=== PATIENT | female | born 1955 | race Caucasian/White ===

== ENCOUNTER 2019-04-08 08:35 | Outpatient (CLI) | payer BC, SELFPAY ==
[2019-04-08 09:01] LABS: Abs Immature Grans 0.01 k/cumm (0.0-0.09); Absolute Basophil Count 0.05 k/cumm (0.0-0.2); Absolute Monocyte Count 0.37 k/cumm (0.11-0.7); Absolute Neutrophil Count 2.33 k/cumm (1.2-6.7); Eosinophils % 3.8; HCT 40.3 % (36.0-46.0); HGB 13.8 g/dL (12.0-15.5); Immature Grans % 0.2; Lymphocytes % 43.7; Mean Corp. HGB Concentration 34.2 g/dL (32.0-36.0); Mean Corpuscular Hemoglobin 30.1 pg (27.0-33.0); Mean Platelet Volume 8.5 fL (8.0-11.0); Neutrophils % 44.3; Platelet Count 300 x1000/uL (130-400); RBC 4.58 m/cumm (4.00-5.20); White Blood Cell Count 5.26 k/cumm (4.4-10.8)
[2019-04-08 09:56] LABS: ALT 26 U/L (14-59); AST 20 U/L (15-37); Albumin 3.7 g/dL (3.4-5.0); Alkaline Phosphatase 81 U/L (46-116); Anion Gap 7.4 mmol/L (3-11); BUN 12 mg/dL (7-18); Bilirubin, Total 0.5 mg/dL (0.2-1.0); CO2 29.6 mmol/L (21.0-32.0); CREATININE 0.89 mg/dL (0.55-1.02); Calcium 9.8 mg/dL (8.5-10.1); Calculated LDL 127 mg/dL; Chloride 104 mmol/L (98-107); Cholesterol 204 mg/dL (50-200); Glucose 84 mg/dL (70-100); HDL Cholesterol 60 mg/dL (40-60); Potassium 4.8 mmol/L (3.5-5.1); Sodium 141 mmol/L (136-145); TSH 2.53 uIU/mL (0.36-3.74); Total Protein 6.8 g/dL (6.4-8.2); Triglyceride 88 mg/dL (30-150)
== END 2019-04-08 08:55 ==
PROVIDERS: PCP Family Medicine; Visit Provider Family Medicine
DX: Z00.00 Encounter for general adult medical examination without abnormal findings (principal); Z13.220 Encounter for screening for lipoid disorders; Z13.0 Encounter for screening for diseases of the blood and blood-forming organs and certain disorders involving the immune mechanism; Z13.228 Encounter for screening for other metabolic disorders
CPT/HCPCS: 36415; 80053; 80061; 84443; 85025

== ENCOUNTER 2019-04-21 15:59 | Outpatient (REF) | payer BC, SELFPAY ==
--- NOTE | 2019-04-21 14:20 | PAPFT_PTH ---
PATIENT: Iris Pearl LOC: [facility] U#:[id number] AGE/SX: 64/F ROOM: RE04/21/[address]: Magaly Nguyen : 1955 BED: DIS: 04/21/2019 SPEC #: [id number] RECD: 04/21/19 18:02 STATUS: TRISTAN REAleksandra #: [id number] RAYMOND: 04/21/19 14:[address]: Magaly Nguyen DEPT: [facility] Cytology RECD BY: Cyndi Chambers ENTERED: 04/21/19 18:02 SP TYPE: PAPFT OTHR DR: Mane Woods Tissues: 1 - CX/ENDOCX FOR PAP SMEARS Procedures: PAP THIN PREP/UVM Screening HPV DNA PROBE Comments: [id number]
== END 2019-04-21 16:19 ==
LOC: LBN 15:59
PROVIDERS: PCP Family Medicine; Visit Provider Obstetrics & Gynecology Gynecology
DX: Z12.4 Encounter for screening for malignant neoplasm of cervix (principal); Z11.51 Encounter for screening for human papillomavirus (HPV)
CPT/HCPCS: 88142; 87624

== ENCOUNTER 2019-11-12 02:10 | Outpatient (CLI) | payer BC, SELFPAY ==
--- NOTE | 2019-11-12 07:30 | DI.MAMMO_ITS ---
EXAM: MG MAMMO SCREENING CLINICAL HISTORY: screening,z12.39 TECHNIQUE: Bilateral full field digital CC and MLO mammographic images were obtained with 3D tomosyn thesis and utilizing computer aided detection (CAD). COMPARISON: Available for comparison. FINDINGS: Masses/Architectural Distortion: None seen. Microcalcifications: No suspicious pleomorphic-type are seen. Skin Thickening/Nipple Retraction: None. IMPRESSION: 1. No significant interval change with no specific features of malignancy noted. 2. Unless there is more urgent need, screening mammography is recommended, as per [employer] guidelines. BI-RADS Category 1 - Negative Breast Density - Category B - Scattered areas of fibroglandular density A negative radiographic report should not delay biopsy if a dominant or clinically suspicious mass is present. Up to ten percent of cancers are not identified on mammography. A negative report may reinforce clinical impression. Adenosis and dense breasts may obscure an underlying neoplasm. False positive reports average 6 to 10%. Patient will receive a letter notifying them of these results.
== END 2019-11-12 02:30 ==
PROVIDERS: PCP Family Medicine; Visit Provider Obstetrics & Gynecology Gynecology
DX: Z12.31 Encounter for screening mammogram for malignant neoplasm of breast (principal)
CPT/HCPCS: 77063; 77067

== ENCOUNTER 2020-02-26 14:02 | Inpatient (IN) | payer BC, SELFPAY ==
[2020-02-26] VITALS (47 sets, daily range): BP systolic 109–165; BP diastolic 56–93; PULSE 64–90; RESP 10–25; TEMP 37–38.3; O2SAT 90–97
--- NOTE | 2020-02-26 14:12 | ED.GENADUL_ITS ---
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 She has nuchal rigidity with positive Brudzinski sign. Temp 100.9 rectal. She appears uncomfortable but nontoxic. Concern for meningitis. Will check screening labs, urinalysis, lactate, COVID-19, blood cultures, CT head and chest x-ray, and give fluids and Tylenol and plan for LP. LP done by anesthesia during high level of volume and acuity in the ED. Labs reviewed and normal white blood cell count, lactate, electrolytes, troponin, urinalysis. CT head and CXR negative for acute disease. 1800 -- CSF notes elevated white blood cell count with no neutrophils or bacteria, high protein and normal glucose. Results appear consistent with viral meningitis. Patient reassessed and she states she feels better. Patient is agreeable with plan for admission for observation overnight, antibiotics for prophylactic coverage while cultures pending and for continued pain control as needed. 1845 -- Case discussed with hospitalist accepts patient for admission. Will order Rocephin, vancomycin, ampicillin and acyclovir. Medical Records Medical records reviewed: Yes I reviewed the patient's medical records. Imaging Data Radiologic Study: Radiologist's impression: CT Head Without Contrast Exam date and time: 02/26/2020 3:07 PM Age: 64 years old Clinical indication: Other: Headache, fever TECHNIQUE: Imaging protocol: Computed tomography of the head without contrast. Radiation optimization: All CT scans at this facility use at least one of these dose optimization techniques: automated exposure control; mA and/or kV adjustment per patient size (includes targeted exams where dose is matched to clinical indication); or iterative reconstruction. COMPARISON: No relevant prior studies available. FINDINGS: Brain: No intracranial hemorrhage or extra-axial fluid collection. No evidence of mass effect or midline shift. Romero-white matter differentiation is intact. Ventricles: No ventriculomegaly. Bones/joints: No acute osseus lesion or fracture. Sinuses: Unremarkable as visualized. Mastoid air cells: Unremarkable. Soft tissues: Unremarkable. IMPRESSION: No acute intracranial pathology. XR Chest, 2 Views Exam date and time: 02/26/2020 4:15 PM Age: 64 years old Clinical indication: Other: Chest pain fever TECHNIQUE: Imaging protocol: XR of the chest Views: 2 views. COMPARISON: No relevant prior studies available. FINDINGS: Lungs: No focal areas of consolidation. Pleural space: No pleural effusion or pneumothorax. Heart/Mediastinum: Cardiac and mediastinal silhouettes are unremarkable. Bones/joints: No acute osseus lesion or fracture. IMPRESSION: No acute cardiopulmonary findings. Lab Data Lab results reviewed: Yes I reviewed the patient's lab results. Labs: 02/26/20 17:05 Cerebrospinal Fluid Body Fluid Culture - Pending 02/26/20 17:05 Cerebrospinal Fluid Gram Stain - Final 02/26/20 15:43 Blood Blood Culture - Pending 02/26/20 14:45 Blood Blood Culture - Pending Laboratory Tests Range/Units 02/26/20 02/26/20 02/26/20 14:30 14:45 14:45 WBC (4.4-10.8) 10^3/uL RBC (3.93-5.22) 10^6/uL Hgb (11.2-15.7) g/dL Hct (36.0-46.0) % MCV (80-95) fL MCH (27.0-33.0) pg MCHC (32.0-36.0) % RDW (11.7-14.6) % Plt Count (130-400) 10^3/uL MPV (8.0-11.0) fL Immature Gran % Neutrophils % Lymphocytes % Monocytes % Eosinophils % Basophils % Nucleated RBC % % Absolute Neutrophils (1.2-6.7) 10^3/uL Absolute Lymphocytes (1.2-3.4) 10^3/uL Absolute Monocytes (0.1-0.8) 10^3/uL Absolute Eosinophils (0.0-0.7) 10^3/uL Absolute Basophils (0.0-0.2) 10^3/uL Xanthochromia PT (9.3-11.0) sec 10.0 INR (0.9-1.1) 1.0 APTT (21.0-31.4) sec 22.3 VBG Lactate (0.6-1.4) mmol/L 1.4 Sodium (136-145) mmol/L Potassium (3.5-5.1) mmol/L Chloride (98-107) mmol/L Carbon Dioxide (21.0-32.0) mmol/L Anion Gap (3-11) mmol/L BUN (7-18) mg/dL Creatinine (0.55-1.02) mg/dL Estimated GFR/1.73 m2 (mL/min/1.73m2) Glucose (74-106) mg/dL Calcium (8.5-10.1) mg/dL Magnesium (1.8-2.4) mg/dL Total Bilirubin (0.2-1.0) mg/dL AST (15-37) U/L ALT (14-59) U/L Alkaline Phosphatase (46-116) U/L Troponin I (<0.06) ng/mL Total Protein (6.4-8.2) g/dL Albumin (3.4-5.0) g/dL Urine Color (Yellow) Yellow Urine Clarity (Clear) Cloudy Urine pH (5-8) 8.0 Ur Specific Lockwood (1.005-1.025) 1.020 Urine Protein (Negative) mg/dL Negative Urine Ketones (Negative) mg/dL Negative Urine Blood (Negative) Small H Urine Nitrite (Negative) Negative Urine Bilirubin (Negative) Negative Urine Urobilinogen (Up TO 0.2) EU/dL 0.2 Ur Leukocyte Esterase (Negative) Negative Urine RBC (0-2) HPF 0-2 Urine WBC (0-5) HPF Negative Ur Epithelial Cells (Negative) HPF Few Urine Crystals (Negative) HPF Many amorphous Urine Bacteria (Negative) HPF Negative Urine Mucus (Negative) Negative Ur Culture Indicated? No Urine Glucose (Negative) mg/dL Negative Fluid Source Fluid Color Fluid Clarity Fluid WBC Fld Polynuclear WBCs % Fluid Mononuclear Cell Fluid Other Cells CSF Tube Number CSF Color CSF Clarity CSF WBC (0-5) /uL CSF RBC (0-5) /mm3 CSF Neutrophils % (0-6) % CSF Lymphocytes % (40-80) % CSF Monos/Macrophage % (15-45) % CSF Diff Comment CSF Glucose (40-70) mg/dL CSF Total Protein (15-45) mg/dL Path Cons Comment Range/Units 02/26/20 02/26/20 02/26/20 14:45 14:45 17:05 WBC (4.4-10.8) 10^3/uL 9.61 RBC (3.93-5.22) 10^6/uL 4.67 Hgb (11.2-15.7) g/dL 14.0 Hct (36.0-46.0) % 40.3 MCV (80-95) fL 86.3 MCH (27.0-33.0) pg 30.0 MCHC (32.0-36.0) % 34.7 RDW (11.7-14.6) % 12.2 Plt Count (130-400) 10^3/uL 310 MPV (8.0-11.0) fL 9.3 Immature Gran % 0.4 Neutrophils % 79.8 Lymphocytes % 14.6 Monocytes % 4.5 Eosinophils % 0.3 Basophils % 0.4 Nucleated RBC % % 0 Absolute Neutrophils (1.2-6.7) 10^3/uL 7.67 H Absolute Lymphocytes (1.2-3.4) 10^3/uL 1.40 Absolute Monocytes (0.1-0.8) 10^3/uL 0.43 Absolute Eosinophils (0.0-0.7) 10^3/uL 0.03 Absolute Basophils (0.0-0.2) 10^3/uL 0.04 Xanthochromia PT (9.3-11.0) sec INR (0.9-1.1) APTT (21.0-31.4) sec VBG Lactate (0.6-1.4) mmol/L Sodium (136-145) mmol/L 137 Potassium (3.5-5.1) mmol/L 3.8 Chloride (98-107) mmol/L 103 Carbon Dioxide (21.0-32.0) mmol/L 25.1 Anion Gap (3-11) mmol/L 8.9 BUN (7-18) mg/dL 13 Creatinine (0.55-1.02) mg/dL 0.91 Estimated GFR/1.73 m2 (mL/min/1.73m2) >= 60.00 Glucose (74-106) mg/dL 99 Calcium (8.5-10.1) mg/dL 9.9 Magnesium (1.8-2.4) mg/dL 2.2 Total Bilirubin (0.2-1.0) mg/dL 0.4 AST (15-37) U/L 17 ALT (14-59) U/L 28 Alkaline Phosphatase (46-116) U/L 82 Troponin I (<0.06) ng/mL < 0.05 Total Protein (6.4-8.2) g/dL 7.4 Albumin (3.4-5.0) g/dL 3.8 Urine Color (Yellow) Urine Clarity (Clear) Urine pH (5-8) Ur Specific Lockwood (1.005-1.025) Urine Protein (Negative) mg/dL Urine Ketones (Negative) mg/dL Urine Blood (Negative) Urine Nitrite (Negative) Urine Bilirubin (Negative) Urine Urobilinogen (Up TO 0.2) EU/dL Ur Leukocyte Esterase (Negative) Urine RBC (0-2) HPF Urine WBC (0-5) HPF Ur Epithelial Cells (Negative) HPF Urine Crystals (Negative) HPF Urine Bacteria (Negative) HPF Urine Mucus (Negative) Ur Culture Indicated? Urine Glucose (Negative) mg/dL Fluid Source Fluid Color Fluid Clarity Fluid WBC Fld Polynuclear WBCs % Fluid Mononuclear Cell Fluid Other Cells CSF Tube Number CSF Color CSF Clarity CSF WBC (0-5) /uL CSF RBC (0-5) /mm3 CSF Neutrophils % (0-6) % CSF Lymphocytes % (40-80) % CSF Monos/Macrophage % (15-45) % CSF Diff Comment CSF Glucose (40-70) mg/dL 49 CSF Total Protein (15-45) mg/dL Path Cons Comment Range/Units 02/26/20 02/26/20 17:05 17:05 WBC (4.4-10.8) 10^3/uL RBC (3.93-5.22) 10^6/uL Hgb (11.2-15.7) g/dL Hct (36.0-46.0) % MCV (80-95) fL MCH (27.0-33.0) pg MCHC (32.0-36.0) % RDW (11.7-14.6) % Plt Count (130-400) 10^3/uL MPV (8.0-11.0) fL Immature Gran % Neutrophils % Lymphocytes % Monocytes % Eosinophils % Basophils % Nucleated RBC % % Absolute Neutrophils (1.2-6.7) 10^3/uL Absolute Lymphocytes (1.2-3.4) 10^3/uL Absolute Monocytes (0.1-0.8) 10^3/uL Absolute Eosinophils (0.0-0.7) 10^3/uL Absolute Basophils (0.0-0.2) 10^3/uL Xanthochromia Absent PT (9.3-11.0) sec INR (0.9-1.1) APTT (21.0-31.4) sec VBG Lactate (0.6-1.4) mmol/L Sodium (136-145) mmol/L Potassium (3.5-5.1) mmol/L Chloride (98-107) mmol/L Carbon Dioxide (21.0-32.0) mmol/L Anion Gap (3-11) mmol/L BUN (7-18) mg/dL Creatinine (0.55-1.02) mg/dL Estimated GFR/1.73 m2 (mL/min/1.73m2) Glucose (74-106) mg/dL Calcium (8.5-10.1) mg/dL Magnesium (1.8-2.4) mg/dL Total Bilirubin (0.2-1.0) mg/dL AST (15-37) U/L ALT (14-59) U/L Alkaline Phosphatase (46-116) U/L Troponin I (<0.06) ng/mL Total Protein (6.4-8.2) g/dL Albumin (3.4-5.0) g/dL Urine Color (Yellow) Urine Clarity (Clear) Urine pH (5-8) Ur Specific Lockwood (1.005-1.025) Urine Protein (Negative) mg/dL Urine Ketones (Negative) mg/dL Urine Blood (Negative) Urine Nitrite (Negative) Urine Bilirubin (Negative) Urine Urobilinogen (Up TO 0.2) EU/dL Ur Leukocyte Esterase (Negative) Urine RBC (0-2) HPF Urine WBC (0-5) HPF Ur Epithelial Cells (Negative) HPF Urine Crystals (Negative) HPF Urine Bacteria (Negative) HPF Urine Mucus (Negative) Ur Culture Indicated? Urine Glucose (Negative) mg/dL Fluid Source Cancelled Fluid Color Cancelled Fluid Clarity Cancelled Fluid WBC Cancelled Fld Polynuclear WBCs % Cancelled Fluid Mononuclear Cell Cancelled Fluid Other Cells Cancelled CSF Tube Number 4 CSF Color Colorless CSF Clarity Clear CSF WBC (0-5) /uL 74 H CSF RBC (0-5) /mm3 3 CSF Neutrophils % (0-6) % 0 CSF Lymphocytes % (40-80) % 65 CSF Monos/Macrophage % (15-45) % 35 CSF Diff Comment Performed CSF Glucose (40-70) mg/dL CSF Total Protein (15-45) mg/dL 98 H Path Cons Comment Cancelled HPI General Mode of arrival: ambulatory . Date/Time Provider Initiated Documentation: 02/26/20 14:03 . Limitations to Documentation: no limitations . Information obtained by: patient . HPI Narrative: Patient is a 64-year-old female with a history of genital herpes and Mollaret's syndrome presents for fever, headache, neck pain, back pain, generalized fatigue over the past 2 days. Patient states she has had 3 previous episodes of viral meningitis, occurring in 1984, , with the last episode occurring in 2002. She states her current symptoms do appear consistent with previous episodes of viral meningitis. 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 She states she maintains 6 feet distance and always wears a mask. She states she traveled to [place] within the last 6 weeks and traveled to [facility] within the last 2 weeks but is not aware of any known exposure to COVID-19. She states her highest temperature she obtained was 99.9. She also admits to an episode of right-sided chest pain yesterday that she felt was tender to touch and worse with movement. She states she needed to push her car out of a ditch yesterday and feels that the pain may be more muscular. She denies any shortness of breath associated with this. She denies any other known sick contacts. Related Data Home Medications Medication Instructions Recorded Confirmed ibuprofen [Advil] 200 mg PO PRN 07/10/16 02/26/20 estradiol 1 vag ring VG [id number] #1 each 04/21/19 02/26/20 Previous Rx's Medication Instructions Recorded estradiol 1 vag ring VG [id number] #1 each 10/29/19 Allergies Allergy/AdvReac Type Severity Reaction Status Date / Time No Known Allergies Allergy Unverified 02/26/20 14:27 Review of Systems All systems reviewed & are unremarkable except as noted in HPI and below Constitutional Constitutional: Reports as per HPI, Denies chills, Reports fatigue, Reports fever(s), Reports headache(s) and Reports poor appetite Eyes Eyes: Denies blurry vision ENT Ears, Nose, Mouth, and Throat: Denies dizziness, Reports headache(s), Reports neck pain, Denies sore throat and Denies throat swelling Cardiovascular Cardiovascular: Denies chest pain and Denies dyspnea Respiratory Respiratory: Denies cough and Denies dyspnea Gastrointestinal Gastrointestinal: Denies abdominal pain, Denies diarrhea and Denies vomiting Genitourinary Genitourinary: Denies hematuria and Denies dysuria Musculoskeletal Musculoskeletal: Reports back pain, Reports neck pain and Denies numbness Integumentary/Breasts Skin/Breast: Denies lesions and Denies rash Neurologic Neurologic: Denies dizziness, Reports headache(s), Denies localized weakness and Denies numbness Endocrine Endocrine: Reports fatigue Allergic/Immunologic Allergic/Immunologic: Denies throat swelling [facility], [facility] Medical History Genital herpes no recent outbreaks. Mollaret's syndrome (benign recurrent meningitis) 1984, 1989, 2002. Serum calcium elevated Dx in 2016. Nl parathyoid gland. only had preliiminary w/u prior to moving to [place]. Will f/u with new PCP at [facility]. 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 Rx with Estring. Family History Mother , suicide at age 60. Stroke Father , alzheimers Neoplasm prostate CA. Sister Alcohol abuse Neoplasm breast CA. Sister No problems noted. Social History (Updated 05/03/19 @ 11:09 by Magaly Nguyen MD) Smoking/Tobacco Use Status: Former Tobacco Use Second Hand Exposure: No Alcohol Intake: current Alcohol Intake frequency: a few times a week Alcohol type: wine Drug use: Never Substance use type: does not use Household members: none and other Details: D-lives alone. 2019 in a relationship with boyfriend. 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 Payton 23yo 2018 moved to [facility]. Female Reproductive History Menstrual Menopause type: natural History History 2 Para 2 Hx # Term Pregnancies 2 Multiple births Hx # Pregnancies Ectopic pregnancies AB induced Hx Number of Living Children 2 AB spontaneous Exam Const General: cooperative and no acute distress Orientation: alert, awake and oriented x3 HENMT Head: normal to inspection Ears: hearing grossly normal bilaterally, external ears normal and TM's normal bilaterally General nose exam: external nose normal Face and sinus: normal facial exam Mouth: oral mucosae normal Teeth and gingiva: dentition normal Throat: posterior oropharynx normal Eyes General: appearance normal, both eyes and all related structures Eyelids: eyelids normal Pupils: PERRL EOM: EOM intact bilaterally Neck Neck: normal visual inspection and positive Brudzinski's sign Lymphatic: no lymphadenopathy noted Chest Chest: normal inspection of the chest Resp Effort & Inspection: normal respiratory effort and able to speak in complete sentences Auscultation: clear to auscultation bilaterally Cardio Rate: regular rate Rhythm: regular rhythm GI Inspection: normal to inspection Palpation: soft, not firm, no guarding, no hepatosplenomegaly, no masses and nontender Auscultation: normal bowel sounds Back/Spine/Pelvis Back: no CVA tenderness Skin General skin exam: no rashes or lesions noted Neuro General: patient alert and patient awake Cognition: normal cognition Speech: speech normal Gait: normal gait Motor: muscle tone normal throughout Sensory Exam: no sensory deficits noted Extrem General: normal to inspection, full ROM and capillary refill normal Psych Appearance: grossly normal Mental Status: mental status grossly normal Speech and Movement: speech and movement normal Affect: normal affect Thought Process: normal
--- NOTE | 2020-02-26 14:41 | NUR.NOTE ---
Nursing Note: Had shingles vaccine 6 months ago, flu vaccine last fall. Did have childhood immunizations.
[2020-02-26] MEDS: Normal Saline 1,000 ML 1000 ML IV ×2 (14:50→18:48)
--- NOTE | 2020-02-26 15:00 | DI.CT_ITS ---
EXAM: CT HEAD WO CLINICAL HISTORY: fever, headache, r/o acute disease. TECHNIQUE: Imaging Protocol: Axial computed tomography images with coronal and sagittal reformatted images were created and reviewed COMPARISON: No exams were available for comparison FINDINGS: Ventricles and Extra axial spaces: Normal in size and morphology for the patient's age. Hemorrhage: None. Cerebral parenchyma: Mild atrophy. No mass or infarct.. Midline shift: None. Brainstem/Cerebellum: Normal. Calvarium: Normal. Visualized Paranasal sinuses/Mastoids: Clear. Soft Tissues: Unremarkable. IMPRESSION: No acute intracranial process. RADIATION DOSE DELIVERED: Total DLP DATA REPOSITORY: All CT scans at this facility are submitted to the National Radiology Data Registry (NRDR) Dose Index Registry (DIR) with the [employer] (A[employer]). RADIATION OPTIMIZATION: All CT scans at this facility use at least one of these dose optimization te chniques: automated exposure control; mA and/or kV adjustment per patient size (includes targeted exa ms where dose is matched to clinical indication); or iterative reconstruction.
--- NOTE | 2020-02-26 15:00 | DI.RAD_ITS ---
EXAM: XR CHEST 2V PA LATERAL CLINICAL HISTORY: chest pain, fever, r/o acute disease TECHNIQUE: 2D digital imaging was performed. COMPARISON: No exams were available for comparison FINDINGS: MEDIASTINUM: Normal. HEART: Normal. PULMONARY VASCULATURE: Normal. LUNGS: Clear. PLEURAL SPACE: No pleural effusion or pneumothorax. BONE:Normal. OTHER FINDINGS:Normal. IMPRESSION: No acute pulmonary findings. DATA REPOSITORY: RADIATION DOSE DELIVERED:
[2020-02-26 15:12] LABS: Lactate 1.4 mmol/L (0.6-1.4)
[2020-02-26 15:14] LABS: Abs Immature Grans 0.04 10^3/uL (0.0-0.06); Absolute Basophil Count 0.04 10^3/uL (0.0-0.2); Absolute Eosinophil Count 0.03 10^3/uL (0.0-0.7); Absolute Monocyte Count 0.43 10^3/uL (0.1-0.8); Absolute Neutrophil Count 7.67 10^3/uL (1.2-6.7); Basophils % 0.4; Eosinophils % 0.3; HCT 40.3 % (36.0-46.0); Immature Grans % 0.4; Lymphocytes % 14.6; MCHC 34.7 % (32.0-36.0); MCV 86.3 fL (80-95); MPV 9.3 fL (8.0-11.0); Monocytes % 4.5; Neutrophils % 79.8; Nucleated RBC 0 %; Platelet Count 310 10^3/uL (130-400); RBC 4.67 10^6/uL (3.93-5.22); RDW 12.2 % (11.7-14.6); RDW-SD 38.2 fL; WBC 9.61 10^3/uL (4.4-10.8)
[2020-02-26 15:31] LABS: PTT Activated 22.3 sec (21.0-31.4)
[2020-02-26 15:32] LABS: ALT 28 U/L (14-59); AST 17 U/L (15-37); Albumin 3.8 g/dL (3.4-5.0); Alkaline Phosphatase 82 U/L (46-116); Anion Gap 8.9 mmol/L (3-11); BUN 13 mg/dL (7-18); Bilirubin, Total 0.4 mg/dL (0.2-1.0); CO2 25.1 mmol/L (21.0-32.0); CREATININE 0.91 mg/dL (0.55-1.02); Calcium 9.9 mg/dL (8.5-10.1); Chloride 103 mmol/L (98-107); Glucose 99 mg/dL (74-106); Magnesium 2.2 mg/dL (1.8-2.4); Potassium 3.8 mmol/L (3.5-5.1); Sodium 137 mmol/L (136-145); Total Protein 7.4 g/dL (6.4-8.2)
[2020-02-26 15:36] LABS: Troponin I < 0.05 ng/mL (<0.06)
[2020-02-26 16:12] LABS: Bilirubin Negative (Negative); Blood Small (Negative); Clarity Cloudy (Clear); Glucose Negative (Negative); Ketones Negative (Negative); Leukocyte Esterase Negative (Negative); Nitrite Negative (Negative); Urobilinogen 0.2 EU/dL (Up TO 0.2)
[2020-02-26 16:23] LABS: Bacteria Negative HPF (Negative); C & S Indicated? No; Crystals Many Amorphous HPF (Negative); Epithelial Cells Few HPF (Negative); Mucus Negative (Negative); RBC 0-2 HPF (0-2); WBC Negative HPF (0-5)
--- NOTE | 2020-02-26 16:24 | DI.VRAD_ITS ---
PROCEDURE INFORMATION: Exam: XR Chest, 2 Views Exam date and time: 02/26/2020 4:15 PM Age: 64 years old Clinical indication: Other: Chest pain fever TECHNIQUE: Imaging protocol: XR of the chest Views: 2 views. COMPARISON: No relevant prior studies available. FINDINGS: Lungs: No focal areas of consolidation. Pleural space: No pleural effusion or pneumothorax. Heart/Mediastinum: Cardiac and mediastinal silhouettes are unremarkable. Bones/joints: No acute osseus lesion or fracture. IMPRESSION: No acute cardiopulmonary findings. Dictated and Authenticated by: Eric Ho MD. Ordering:RENATA Brown MD
--- NOTE | 2020-02-26 16:24 | DI.VRAD_ITS ---
PROCEDURE INFORMATION: Exam: CT Head Without Contrast Exam date and time: 02/26/2020 3:07 PM Age: 64 years old Clinical indication: Other: Headache, fever TECHNIQUE: Imaging protocol: Computed tomography of the head without contrast. Radiation optimization: All CT scans at this facility use at least one of these dose optimization techniques: automated exposure control; mA and/or kV adjustment per patient size (includes targeted exams where dose is matched to clinical indication); or iterative reconstruction. COMPARISON: No relevant prior studies available. FINDINGS: Brain: No intracranial hemorrhage or extra-axial fluid collection. No evidence of mass effect or midline shift. Romero-white matter differentiation is intact. Ventricles: No ventriculomegaly. Bones/joints: No acute osseus lesion or fracture. Sinuses: Unremarkable as visualized. Mastoid air cells: Unremarkable. Soft tissues: Unremarkable. IMPRESSION: No acute intracranial pathology. Dictated and Authenticated by: Eric Ho MD. Ordering:RENATA Brown MD
[2020-02-26] MEDS: ACETAMINOPHEN 1,000 MG/100 ML BTL 400 MG IVPB (16:29)
--- NOTE | 2020-02-26 16:56 | NUR.NOTE ---
Nursing Note: Anesthesia at bedside to do LP
--- NOTE | 2020-02-26 17:10 | NUR.NOTE ---
Nursing Note:LP complete, patient tolerated without issue. CSF haqnd carried to the lab.
[2020-02-26] MEDS: Dexamethasone 10 MG/ML VIAL IVP (17:32)
[2020-02-26] MEDS: diphenhydrAMINE 50 MG/ML VIAL 25 MG IVP (17:36)
[2020-02-26] MEDS: Prochlorperazine 10 MG/2 ML VIAL IVP (17:38)
[2020-02-26] MEDS: Ketorolac 30 MG/ML VIAL IVP (17:42)
[2020-02-26 17:48] LABS: Glucose (CSF) 49 mg/dL (40-70)
[2020-02-26 17:53] LABS: Total Protein (CSF) 98 mg/dL (15-45)
[2020-02-26 17:56] LABS: Clarity Clear; Tube # 4; WBC 74 /uL (0-5); Xanthochromia Absent
[2020-02-26 17:57] LABS: RBC 3 /mm3 (0-5)
--- NOTE | 2020-02-26 18:15 | NUR.NOTE ---
Nursing Note: PT report received from Jefferson (RN) at this time.
[2020-02-26 18:25] LABS: Differential CSF: Performed; Neutrophils CSF 0 % (0-6)
[2020-02-26 18:26] LABS: Lymphocytes CSF 65 % (40-80); Monocyte/Macrophage CSF 35 % (15-45)
[2020-02-26] MEDS: cefTRIAXone 2 GM/50 ML BAG 100 GM (20:12)
[2020-02-26] MEDS: AMPICILLIN SODIUM 2 GM in Normal Saline 100 ML IVPB (20:13)
--- NOTE | 2020-02-26 21:39 | W.PM.HP.N ---
Date of service: 02/26/20 Time of Service: 21:39 Assessment and Plan Assessment and plan (1) Viral meningitis: Status: Suspected Assessment and plan: CSF chemistries and Gram stain are consistent with viral meningitis. Patient's had history of multiple episodes of viral meningitis in the past. However, pending blood culture and CSF culture results patient will be covered with Rocephin and ampicillin and vancomycin. Will also cover with acyclovir given her prior history of HSV infection.We will treat symptoms with NSAID analgesics along with antiemetics and IV fluid hydration. If blood and CSF bacterial cultures come back negative then we can discontinue all of her antibiotics and if her HSV studies of her CSF are negative we can discontinue the acyclovir. 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 Who presents to the hospital with 1 day history of low-grade fever of 100.9 along with headache neck ache and lower back pain. Evaluation the emergency department included routine labs as well as a lumbar puncture and CT scan of her head. CBC was unremarkable as was her CMP however her lumbar puncture was remarkable for clear colorless CSF with an increased total protein of 98 mg/dL and a low normal glucose level of 49 mg/dL with a predominant lymphocytosis with a total WBC count of 74/mcL with 65% lymphocytes and 0 neutrophils and 35% monocytes. Gram stain of her CSF was remarkable for many white blood cells but no bacteria. Patient was empirically given Decadron in the emergency department and started on ampicillin and Rocephin and vancomycin pending the results of her blood cultures and CSF culture. She was also started on acyclovir as she has had a history of previous herpes meningeal encephalitis. Patient's risk factors include recent travel to [place] where she was visiting with her daughter and her daughter's partner. Patient stayed on [place] but her daughter and her daughter's partner had come to [place] recently from [facility]. COVID-19 nasopharyngeal swab has been obtained for PCR testing but is pending at this time. 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 She states she is primarily worked in [employer] and [facility]. As far she knows she is not been exposed a by mass COVID-19 or has been ill. Review of Systems All systems reviewed & are unremarkable except as noted in HPI and below PFSH Medical History Genital herpes no recent outbreaks. Mollaret's syndrome (benign recurrent meningitis) 1984, 1989, 2002. Serum calcium elevated Dx in 2016. Nl parathyoid gland. only had preliiminary w/u prior to moving to [place]. Will f/u with new PCP at [facility]. 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 Rx with Estring. Family History Mother , suicide at age 60. Stroke Father , alzheimers Neoplasm prostate CA. Sister Alcohol abuse Neoplasm breast CA. Sister No problems noted. Social History (Updated 05/03/19 @ 11:09 by Magaly Nguyen MD) Smoking/Tobacco Use Status: Former Tobacco Use Second Hand Exposure: No Alcohol Intake: current Alcohol Intake frequency: a few times a week Alcohol type: wine Drug use: Never Substance use type: does not use Household members: none and other Details: D-lives alone. 2019 in a relationship with boyfriend. 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 Payton 23yo [address] [facility]. Female Reproductive History Menstrual Menopause type: natural History History 2 Para 2 Hx # Term Pregnancies 2 Multiple births Hx # Pregnancies Ectopic pregnancies AB induced Hx Number of Living Children 2 AB spontaneous Meds Home Medications and Allergies Home Medications Medication Instructions Recorded Confirmed Type ibuprofen [Advil] 200 mg PO PRN 07/10/16 02/26/20 History estradiol 1 vag ring VG [id number] #[id number] each 04/21/19 02/26/20 Rx Allergies Allergy/AdvReac Type Severity Reaction Status Date / Time No Known Allergies Allergy Unverified 02/26/20 14:27 Exam Narrative Exam Narrative: Limited exam as I had to wear PAPR unit HEENT is unremarkable. Neck is supple with some nuchal tenderness but no rigidity. No cervical lymphadenopathy normal carotid pulses Lungs could not be auscultated due to my wearing a freire with the PAPR unit Heart was not auscultated for the same reason Abdomen is soft and nontender Extremities without peripheral cyanosis or edema. Normal range of motion. Neuro exam is grossly intact and nonfocal. Results Labs Result diagrams: 02/26/20 14:45 02/26/20 14:45 Labs: Laboratory Results - last 24 hr 02/26/20 02/26/20 02/26/20 14:30 14:45 14:45 WBC RBC Hgb Hct MCV MCH MCHC RDW Plt Count MPV Immature Gran % Neutrophils % Lymphocytes % Monocytes % Eosinophils % Basophils % Nucleated RBC % Absolute Neutrophils Absolute Lymphocytes Absolute Monocytes Absolute Eosinophils Absolute Basophils Xanthochromia PT 10.0 INR 1.0 APTT 22.3 VBG Lactate 1.4 Sodium Potassium Chloride Carbon Dioxide Anion Gap BUN Creatinine Estimated GFR/1.73 m2 Glucose Calcium Magnesium Total Bilirubin AST ALT Alkaline Phosphatase Troponin I Total Protein Albumin Urine Color Yellow Urine Clarity Cloudy Urine pH 8.0 Ur Specific [place] 1.020 Urine Protein Negative Urine Ketones Negative Urine Blood Small H Urine Nitrite Negative Urine Bilirubin Negative Urine Urobilinogen 0.2 Ur Leukocyte Esterase Negative Urine RBC 0-2 Urine WBC Negative Ur Epithelial Cells Few Urine Crystals Many amorphous Urine Bacteria Negative Urine Mucus Negative Ur Culture Indicated? No Urine Glucose Negative Fluid Source Fluid Color Fluid Clarity Fluid WBC Fld Polynuclear WBCs % Fluid Mononuclear Cell Fluid Other Cells CSF Tube Number CSF Color CSF Clarity CSF WBC CSF RBC CSF Neutrophils % CSF Lymphocytes % CSF Monos/Macrophage % CSF Diff Comment CSF Glucose CSF Total Protein Path Cons Comment 02/26/20 02/26/20 02/26/20 14:45 14:45 17:05 WBC 9.61 RBC 4.67 Hgb 14.0 Hct 40.3 MCV 86.3 MCH 30.0 MCHC 34.7 RDW 12.2 Plt Count 310 MPV 9.3 Immature Gran % 0.4 Neutrophils % 79.8 Lymphocytes % 14.6 Monocytes % 4.5 Eosinophils % 0.3 Basophils % 0.4 Nucleated RBC % 0 Absolute Neutrophils 7.67 H Absolute Lymphocytes 1.40 Absolute Monocytes 0.43 Absolute Eosinophils 0.03 Absolute Basophils 0.04 Xanthochromia PT INR APTT VBG Lactate Sodium 137 Potassium 3.8 Chloride 103 Carbon Dioxide 25.1 Anion Gap 8.9 BUN 13 Creatinine 0.91 Estimated GFR/1.73 m2 >= 60.00 Glucose 99 Calcium 9.9 Magnesium 2.2 Total Bilirubin 0.4 AST 17 ALT 28 Alkaline Phosphatase 82 Troponin I < 0.05 Total Protein 7.4 Albumin 3.8 Urine Color Urine Clarity Urine pH Ur Specific [place] Urine Protein Urine Ketones Urine Blood Urine Nitrite Urine Bilirubin Urine Urobilinogen Ur Leukocyte Esterase Urine RBC Urine WBC Ur Epithelial Cells Urine Crystals Urine Bacteria Urine Mucus Ur Culture Indicated? Urine Glucose Fluid Source Fluid Color Fluid Clarity Fluid WBC Fld Polynuclear WBCs % Fluid Mononuclear Cell Fluid Other Cells CSF Tube Number CSF Color CSF Clarity CSF WBC CSF RBC CSF Neutrophils % CSF Lymphocytes % CSF Monos/Macrophage % CSF Diff Comment CSF Glucose 49 CSF Total Protein Path Cons Comment 02/26/20 02/26/20 17:05 17:05 WBC RBC Hgb Hct MCV MCH MCHC RDW Plt Count MPV Immature Gran % Neutrophils % Lymphocytes % Monocytes % Eosinophils % Basophils % Nucleated RBC % Absolute Neutrophils Absolute Lymphocytes Absolute Monocytes Absolute Eosinophils Absolute Basophils Xanthochromia Absent PT INR APTT VBG Lactate Sodium Potassium Chloride Carbon Dioxide Anion Gap BUN Creatinine Estimated GFR/1.73 m2 Glucose Calcium Magnesium Total Bilirubin AST ALT Alkaline Phosphatase Troponin I Total Protein Albumin Urine Color Urine Clarity Urine pH Ur Specific [place] Urine Protein Urine Ketones Urine Blood Urine Nitrite Urine Bilirubin Urine Urobilinogen Ur Leukocyte Esterase Urine RBC Urine WBC Ur Epithelial Cells Urine Crystals Urine Bacteria Urine Mucus Ur Culture Indicated? Urine Glucose Fluid Source Cancelled Fluid Color Cancelled Fluid Clarity Cancelled Fluid WBC Cancelled Fld Polynuclear WBCs % Cancelled Fluid Mononuclear Cell Cancelled Fluid Other Cells Cancelled CSF Tube Number 4 CSF Color Colorless CSF Clarity Clear CSF WBC 74 H CSF RBC 3 CSF Neutrophils % 0 CSF Lymphocytes % 65 CSF Monos/Macrophage % 35 CSF Diff Comment Performed CSF Glucose CSF Total Protein 98 H Path Cons Comment Cancelled Last Vital Signs Temp 37 C 02/26/20 20:55 Pulse 90 02/26/20 20:55 Resp 18 02/26/20 20:55 BP 142/73 H 02/26/20 20:55 Pulse Ox 94 L 02/26/20 20:55 COVID-19 Screening Have you,or household,traveled outside [place] in last 14 days?: Yes Had IN PERSON contact w/suspected or confirmed C-19 person: Yes
[2020-02-26] MEDS: Normal Saline Flush 10 ML SYR IVP (22:52)
[2020-02-26] MEDS: VANCOMYCIN 1,250 MG in Normal Saline 250 ML 166.6666 MG IVPB (22:52)
[2020-02-27] MEDS: AMPICILLIN SODIUM 2 GM in Normal Saline 100 ML IVPB ×6 (00:48→20:37)
[2020-02-27] MEDS: POTASSIUM CHLORIDE/0.9% NACL 1,000 ML 100 MEQ IV (00:48)
[2020-02-27 04:08] VITALS: BP 125/79; PULSE 79; RESP 17; TEMP 37.3; O2SAT 95
[2020-02-27 06:14] LABS: COVID-19 RT-PCR UVMMC Result Negative (Negative)
[2020-02-27 07:47] LABS: Abs Immature Grans 0.03 10^3/uL (0.0-0.06); Absolute Basophil Count 0.01 10^3/uL (0.0-0.2); Absolute Lymphocyte Count 1.73 10^3/uL (1.2-3.4); Absolute Monocyte Count 0.58 10^3/uL (0.1-0.8); Absolute Neutrophil Count 7.65 10^3/uL (1.2-6.7); Basophils % 0.1; HCT 32.8 % (36.0-46.0); Immature Grans % 0.3; Lymphocytes % 17.3; MCH 30.1 pg (27.0-33.0); MCHC 34.1 % (32.0-36.0); MCV 88.2 fL (80-95); MPV 9.2 fL (8.0-11.0); Monocytes % 5.8; Neutrophils % 76.5; Nucleated RBC 0 %; Platelet Count 272 10^3/uL (130-400); RBC 3.72 10^6/uL (3.93-5.22); RDW 12.2 % (11.7-14.6); RDW-SD 39.7 fL
[2020-02-27] MEDS: Normal Saline Flush 10 ML SYR IVP ×5 (07:47→19:07)
[2020-02-27] MEDS: Ketorolac 15 MG/ML VIAL IVP (07:47)
[2020-02-27] MEDS: cefTRIAXone 2 GM/50 ML BAG IVPB (07:47)
[2020-02-27 07:50] VITALS: BP 115/68; PULSE 71; RESP 18; TEMP 37.6; O2SAT 95
[2020-02-27 07:54] LABS: HGB 11.2 g/dL (11.2-15.7)
[2020-02-27 08:01] LABS: Anion Gap 6.6 mmol/L (3-11); BUN 10 mg/dL (7-18); CO2 22.4 mmol/L (21.0-32.0); CREATININE 0.77 mg/dL (0.55-1.02); Calcium 8.7 mg/dL (8.5-10.1); Chloride 109 mmol/L (98-107); Glucose 110 mg/dL (74-106); Potassium 3.7 mmol/L (3.5-5.1); Sodium 138 mmol/L (136-145)
--- NOTE | 2020-02-27 09:46 | PDOC.CMIN ---
- If Service Date Differs Date of service: 02/27/20 Time of Service: 09:46 Care Management Initial Assess REASON FOR HOSPITALIZATION:: Meningitis PAST MEDICAL HISTORY/PAST SURGICAL HISTORY:: Genital herpes, Mollaret's syndrome (benign recurrent meningitis). Serum calcium elevated, Nl parathyoid gland,Vaginal atrophy secondary to menopause. ADVANCE DIRECTIVES:: None on file - CM to offer forms CODE STATUS:: Full Code INSURANCE COVERAGE / FINANCIAL ISSUES:: BCBS CURRENT HOME/COMMUNITY SERVICES/EQUIPMENT:: No current services. PRIMARY CARE PHYSICIAN:: [place], [facility]
--- NOTE | 2020-02-27 11:04 | PHA.REVIEW ---
Pharmacy Admission Review - Admission Clinical Review (Last Reviewed 02/26/20 @ 22:15 by Avi Hou) Mollaret's syndrome (Acute) No Known Allergies Allergy (Unverified 02/26/20 14:27) Height 5 ft 6 in Weight 77.4 kg - Renal Dosing Renal Dosing: BUN 10 mg/dL (7-18) 02/27/20 07:10 Creatinine 0.77 mg/dL (0.55-1.02) 02/27/20 07:10 Medications needing adjustments: Reviewed (Crcl ~67.38 mL/min current meds okay) - Anticoagulation Anticoagulation: Hgb 11.2 g/dL (11.2-15.7) D 02/27/20 07:10 Hct 32.8 % (36.0-46.0) L 02/27/20 07:10 Plt Count 272 10^3/uL (130-400) 02/27/20 07:10 INR 1.0 (0.9-1.1) 02/26/20 14:45 Creatinine 0.77 mg/dL (0.55-1.02) 02/27/20 07:10 DVT Prohphylaxis: Intervened (Nothing mentioned in H&P, will ask provider about this. Has SCDs/TEDs ordered.) Therapeutic Anticoagulation: N/A - Opiate Usage Evaluate Pain Scale/Pains Meds: N/A - Relevant Labs Sodium 138 mmol/L (136-145) 02/27/20 07:10 Potassium 3.7 mmol/L (3.5-5.1) 02/27/20 07:10 Chloride 109 mmol/L (98-107) H 02/27/20 07:10 Magnesium 2.2 mg/dL (1.8-2.4) 02/26/20 14:45 Electrolytes, C-Reactive P, ESR: Reviewed - DM Control DM Control: Glucose 110 mg/dL (74-106) H 02/27/20 07:10 Insulin Dosing: N/A - Heart Failure/VT Heart Failure/VT: Troponin I < 0.05 ng/mL (<0.06) 02/26/20 14:45 EF%, JAMI's, B-Blockers, Diuretics: N/A - BP Control BP Control: Blood Pressure 115/68 Blood Pressure 125/79 If elevated: N/A - Qtc Review If Elevated: N/A - IV to PO Switch IV Medications: Reviewed - Home Meds Home Med List reviewed: Reviewed Relevent Home Meds Not ordered & why?: estradiol, ibuprofen (has ketorolac ordered) - Current meds Current Medication Order Review: Reviewed - Comments Comments/Follow Ups: Watch Cl, for culture results and for med changes (IV to PO for antiviral and abx, narrowing abx) Antibiotic Activity - Pharmacy Antibiotic Review Pharmacy Antibiotic Activity: C/S review (Blood and CSF cultures pending. Currently has vanco, ampicillin and ceftriaxone ordered, as well acyclovir due to prior history of HSV (per progress note).)
[2020-02-27] MEDS: Enoxaparin 40 MG/0.4 ML SYR SC (12:11)
[2020-02-27 12:34] VITALS: BP 119/75; PULSE 80; RESP 18; TEMP 37.8; O2SAT 96
[2020-02-27 12:46] VITALS: TEMP 37.8
[2020-02-27] MEDS: Acetaminophen 325 MG TAB PO (12:46)
--- NOTE | 2020-02-27 14:35 | W.PM.PROGNOT ---
Date of Service Date of service: 02/27/20 Time of Service: 14:35 Assessment and Plan Assessment and plan (1) Viral meningitis: Status: Suspected Assessment and plan: WBC count normal Afebrile. CSF and blood cultures in progress. On broad spectrum antibiotic coverage as well as acyclovir for HSV coverage. (2) Mollaret's syndrome: Status: Acute Assessment and plan: 4th episode of aseptic meningitis; last episode was in 2002. This episode has been more mild and is resolving more readily than previous ones. Subjective Subjective Patient reports: no new complaints and feels better Interval history since last seen: JOYA and neck stiffness improved. Previous thoracic and lumbar pain resolved. No F/C Tolerating oral intake. Exam Const General: cooperative and no acute distress Nutritional Appearance: average body habitus Orientation: alert and oriented x3 HENMT Head: atraumatic Eyes Sclera: sclerae normal Pupils: PERRL Neck Neck: other (mild posterior neck tenderness with flexion.) Resp Effort & Inspection: normal respiratory effort Auscultation: clear to auscultation bilaterally Cardio Rate: regular rate Rhythm: regular rhythm Heart Sounds: S1 normal and S2 normal Neuro General: patient alert and patient oriented x3 Cognition: normal cognition Speech: speech normal Extrem General: no pedal edema Objective Objective Clinical Data: Abnormal lab results 02/26/20 02/26/20 02/26/20 Range/Units 14:30 14:45 17:05 RBC (3.93-5.22) 10^6/uL Hct (36.0-46.0) % Absolute Neutrophils 7.67 H (1.2-6.7) 10^3/uL Chloride (98-107) mmol/L Glucose (74-106) mg/dL Urine Blood Small H (Negative) CSF WBC (0-5) /uL CSF Total Protein 98 H (15-45) mg/dL 02/26/20 02/27/20 02/27/20 Range/Units 17:05 07:10 07:10 RBC 3.72 L (3.93-5.22) 10^6/uL Hct 32.8 L (36.0-46.0) % Absolute Neutrophils 7.65 H (1.2-6.7) 10^3/uL Chloride 109 H (98-107) mmol/L Glucose 110 H (74-106) mg/dL Urine Blood (Negative) CSF WBC 74 H (0-5) /uL CSF Total Protein (15-45) mg/dL Vital Signs Temperature 37.8 C H 02/27/20 12:46 Temperature Source Tympanic 02/27/20 12:34 Pulse 80 02/27/20 12:34 Pulse Rhythm Regular 02/27/20 07:48 Pulse 82 02/26/20 20:31 Respiratory Rate 18 02/27/20 12:34 Respiratory Effort Non-Labored 02/27/20 07:48 Respiratory Depth Normal 02/27/20 07:48 Respiratory Pattern Normal 02/27/20 07:48 Blood Pressure 119/75 02/27/20 12:34 Blood Pressure Mean 74 02/26/20 20:30 Blood Pressure Position Supine 02/26/20 14:15 Pulse Oximetry 96 02/27/20 12:34 Oxygen Delivery Method Room Air 02/27/20 12:34 Oxygen Flow Rate 0 02/27/20 12:34 Pain Level 1 02/27/20 12:34 Comment 02/27/20 07:50 Intake & Output 02/26/20 02/27/20 02/27/20 23:59 11:59 23:59 Intake Total 2450 / 2450 2049 / 2149 100 / 2150 Balance 2450 / 2450 2049 Weight 74.843 kg 77.4 kg Intake: IV 2450 / 2450 2049 / 2149 Other: Urine Color Yellow Yellow Urine Appearance Clear Clear Clear Urine Odor None None Comment as per patient report as per patient report Voiding Methods Toilet Toilet Laboratory Results WBC 10.00 10^3/uL (4.4-10.8) 02/27/20 07:10 RBC 3.72 10^6/uL (3.93-5.22) L 02/27/20 07:10 Hgb 11.2 g/dL (11.2-15.7) D 02/27/20 07:10 Hct 32.8 % (36.0-46.0) L 02/27/20 07:10 MCV 88.2 fL (80-95) 02/27/20 07:10 MCH 30.1 pg (27.0-33.0) 02/27/20 07:10 MCHC 34.1 % (32.0-36.0) 02/27/20 07:10 RDW 12.2 % (11.7-14.6) 02/27/20 07:10 Plt Count 272 10^3/uL (130-400) 02/27/20 07:10 MPV 9.2 fL (8.0-11.0) 02/27/20 07:10 Immature Gran % 0.3 02/27/20 07:10 Neutrophils % 76.5 02/27/20 07:10 Lymphocytes % 17.3 02/27/20 07:10 Monocytes % 5.8 02/27/20 07:10 Eosinophils % 0.0 02/27/20 07:10 Basophils % 0.1 02/27/20 07:10 Nucleated RBC % 0 % 02/27/20 07:10 Absolute Neutrophils 7.65 10^3/uL (1.2-6.7) H 02/27/20 07:10 Absolute Lymphocytes 1.73 10^3/uL (1.2-3.4) 02/27/20 07:10 Absolute Monocytes 0.58 10^3/uL (0.1-0.8) 02/27/20 07:10 Absolute Eosinophils 0.00 10^3/uL (0.0-0.7) 02/27/20 07:10 Absolute Basophils 0.01 10^3/uL (0.0-0.2) 02/27/20 07:10 Xanthochromia Absent 02/26/20 17:05 PT 10.0 sec (9.3-11.0) 02/26/20 14:45 INR 1.0 (0.9-1.1) 02/26/20 14:45 APTT 22.3 sec (21.0-31.4) 02/26/20 14:45 VBG Lactate 1.4 mmol/L (0.6-1.4) 02/26/20 14:45 Sodium 138 mmol/L (136-145) 02/27/20 07:10 Potassium 3.7 mmol/L (3.5-5.1) 02/27/20 07:10 Chloride 109 mmol/L (98-107) H 02/27/20 07:10 Carbon Dioxide 22.4 mmol/L (21.0-32.0) 02/27/20 07:10 Anion Gap 6.6 mmol/L (3-11) 02/27/20 07:10 BUN 10 mg/dL (7-18) 02/27/20 07:10 Creatinine 0.77 mg/dL (0.55-1.02) 02/27/20 07:10 Estimated GFR/1.73 m2 >= 60.00 (mL/min/1.73m2) 02/27/20 07:10 Glucose 110 mg/dL (74-106) H 02/27/20 07:10 Calcium 8.7 mg/dL (8.5-10.1) 02/27/20 07:10 Magnesium 2.2 mg/dL (1.8-2.4) 02/26/20 14:45 Total Bilirubin 0.4 mg/dL (0.2-1.0) 02/26/20 14:45 AST 17 U/L (15-37) 02/26/20 14:45 ALT 28 U/L (14-59) 02/26/20 14:45 Alkaline Phosphatase 82 U/L (46-116) 02/26/20 14:45 Troponin I < 0.05 ng/mL (<0.06) 02/26/20 14:45 Total Protein 7.4 g/dL (6.4-8.2) 02/26/20 14:45 Albumin 3.8 g/dL (3.4-5.0) 02/26/20 14:45 Urine Color Yellow (Yellow) 02/26/20 14:30 Urine Clarity Cloudy (Clear) 02/26/20 14:30 Urine pH 8.0 (5-8) 02/26/20 14:30 Ur Specific [place] 1.020 (1.005-1.025) 02/26/20 14:30 Urine Protein Negative mg/dL (Negative) 02/26/20 14:30 Urine Ketones Negative mg/dL (Negative) 02/26/20 14:30 Urine Blood Small (Negative) H 02/26/20 14:30 Urine Nitrite Negative (Negative) 02/26/20 14:30 Urine Bilirubin Negative (Negative) 02/26/20 14:30 Urine Urobilinogen 0.2 EU/dL (Up TO 0.2) 02/26/20 14:30 Ur Leukocyte Esterase Negative (Negative) 02/26/20 14:30 Urine RBC 0-2 HPF (0-2) 02/26/20 14:30 Urine WBC Negative HPF (0-5) 02/26/20 14:30 Ur Epithelial Cells Few HPF (Negative) 02/26/20 14:30 Urine Crystals Many amorphous HPF (Negative) 02/26/20 14:30 Urine Bacteria Negative HPF (Negative) 02/26/20 14:30 Urine Mucus Negative (Negative) 02/26/20 14:30 Ur Culture Indicated? No 02/26/20 14:30 Urine Glucose Negative mg/dL (Negative) 02/26/20 14:30 Fluid Source Cancelled 02/26/20 17:05 Fluid Color Cancelled 02/26/20 17:05 Fluid Clarity Cancelled 02/26/20 17:05 Fluid WBC Cancelled 02/26/20 17:05 Fld Polynuclear WBCs % Cancelled 02/26/20 17:05 Fluid Mononuclear Cell Cancelled 02/26/20 17:05 Fluid Other Cells Cancelled 02/26/20 17:05 CSF Tube Number 4 02/26/20 17:05 CSF Color Colorless 02/26/20 17:05 CSF Clarity Clear 02/26/20 17:05 CSF WBC 74 /uL (0-5) H 02/26/20 17:05 CSF RBC 3 /mm3 (0-5) 02/26/20 17:05 CSF Neutrophils % 0 % (0-6) 02/26/20 17:05 CSF Lymphocytes % 65 % (40-80) 02/26/20 17:05 CSF Monos/Macrophage % 35 % (15-45) 02/26/20 17:05 CSF Diff Comment Performed 02/26/20 17:05 CSF Glucose 49 mg/dL (40-70) 02/26/20 17:05 CSF Total Protein 98 mg/dL (15-45) H 02/26/20 17:05 COVID-19 PCR Negative (Negative) 02/26/20 15:33 Nasopharyn COVID-19 PCR Not Applicable 02/26/20 15:33 Path Cons Comment Cancelled 02/26/20 17:05 Ref Test Perform Site [place] [facility] 02/26/20 15:33
[2020-02-27 15:54] VITALS: BP 131/63; PULSE 74; RESP 17; TEMP 37.1; O2SAT 96
[2020-02-27 23:47] VITALS: BP 137/71; PULSE 62; RESP 17; TEMP 37.1; O2SAT 97
[2020-02-28] MEDS: AMPICILLIN SODIUM 2 GM in Normal Saline 100 ML IVPB ×2 (00:10→04:20)
[2020-02-28] MEDS: Normal Saline Flush 10 ML SYR IVP ×2 (04:20→04:51)
[2020-02-28] MEDS: Ketorolac 15 MG/ML VIAL IVP (04:52)
[2020-02-28 07:23] VITALS: BP 128/69; PULSE 64; RESP 17; TEMP 36.6; O2SAT 97
[2020-02-28 07:53] LABS: Enterovirus PCR, CSF Negative (Negative); HSV 1 DNA Result Negative (Negative)
--- NOTE | 2020-02-28 08:57 | DSE_ITS ---
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 She presented to the hospital with 1 day history of low-grade fever of 100.9 along with headache neck ache and lower back pain. Evaluation the emergency department included routine labs as well as a lumbar puncture and CT scan of her head. CBC was unremarkable as was her CMP however her lumbar puncture was remarkable for clear colorless CSF with an increased total protein of 98 mg/dL and a low normal glucose level of 49 mg/dL with a predominant lymphocytosis with a total WBC count of 74/mcL with 65% lymphocytes and 0 neutrophils and 35% monocytes. Gram stain of her CSF was remarkable for many white blood cells but no bacteria. Patient was empirically given Decadron in the emergency department and started on ampicillin, Rocephin and vancomycin pending the results of her blood cultures and CSF culture. She was also started on acyclovir as she has had a history of previous herpes meningeal encephalitis. Her symptoms improved significantly over the course of the following day and night. Blood and CSF cultures negative at time of discharge after 24 hours. Given her h/o of aseptic meningitis and the findings on CSF cell count consistent with a viral etiology. Antibiotics were stopped and she was discharged to home on Valcyclovir 1g BID for 5 days. She had improvement in pain control / JOYA with toradol. 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 She will try Celebrex 100mg po daily. Follow up with PCP in 1-2 weeks. Home Meds and New Rx's Prescriptions: New celecoxib 100 mg capsule 100 mg PO DAILY Qty: 30 RF: 0 valacyclovir [Valtrex] 1 gram tablet 1,000 mg PO BID Qty: 20 RF: 0 Continued Estring 2 mg (7.5 mcg /24 hour) ring 1 vag ring VG [id number] Qty: 1 RF: 4 Discontinued ibuprofen [Advil] 200 MG tablet 200 mg PO PRN RF: 0 Discharge Instructions Instructions: Viral Meningitis (GEN) Stand Alone Forms: Nursing Discharge Form Referrals: M[facility] [Primary Care Provider] - (Please call Saturday to make a follow up appointment for 1-2 weeks. ) Activity:: Activity as Tolerated Equipment/Supplies:: No Equipment Needed Diet:: As Tolerated Discharge Orders Discharge Orders: Discharge Order (Routine); Ordered 02/28/20 Ordered By: Hiram Gutierrez Discharge Data Discharge Date/Time-TO BE ENTERED AT DEPARTURE: 02/28/20 11:02 DS: Summary Status at Discharge Functional status at discharge: independent ambulation Overall status at discharge: patient is progressing back to baseline Mental Status: mental status grossly normal Speech and Movement: speech and movement normal Mood: congruent mood Affect: normal affect Exam Psych Mental Status: mental status grossly normal Speech and Movement: speech and movement normal Mood: congruent mood Affect: normal affect DS: Data Vitals/I&O Vitals and I&O: Vital Signs Temperature 36.6 C 02/28/20 07:23 Temperature Source Tympanic 02/28/20 07:23 Pulse 64 02/28/20 07:23 Pulse Rhythm Regular 02/27/20 23:55 Pulse 82 02/26/20 20:31 Respiratory Rate 17 02/28/20 07:23 Respiratory Effort 02/27/20 23:55 Respiratory Depth Normal 02/27/20 23:55 Respiratory Pattern Normal 02/27/20 23:55 Blood Pressure 128/69 02/28/20 07:23 Blood Pressure Mean 74 02/26/20 20:30 Blood Pressure Position Supine 02/26/20 14:15 Pulse Oximetry 97 02/28/20 07:23 Oxygen Delivery Method Room Air 02/28/20 07:23 Oxygen Flow Rate 0 02/28/20 07:23 Pain Level 0 02/28/20 07:23 Comment 02/27/20 07:50 Intake & Output 02/27/20 02/27/20 02/28/20 11:59 23:59 11:59 Intake Total 2049 / 0 650 / 650 Balance 2049 1020 / 3070 650 / 650 Weight 77.4 kg 75.9 kg Intake: IV 2049 1020 / 3070 450 / 450 Oral 200 / 200 Other: Urine Color Yellow Yellow Urine Appearance Clear Clear Urine Odor None None Comment as per patient report as per patient report VOIDS INDEP AND DO SO SEVERAL TIMES T/O NOC SHIFT Stool Characteristics Liquid Voiding Methods Toilet Toilet Toilet Data Completed and Pending Labs on day of discharge: Preliminary micro results at discharge 02/26/20 17:05 Body Fluid Culture - Preliminary Cerebrospinal Fluid 02/26/20 15:43 Blood Culture - Preliminary Blood NO GROWTH 24 HOURS 02/26/20 14:45 Blood Culture - Preliminary Blood NO GROWTH 24 HOURS PENDING SALE TO [facility] Medical History Genital herpes no recent outbreaks. Mollaret's syndrome (benign recurrent meningitis) 1984, 1989, 2002. Serum calcium elevated Dx in 2016. Nl parathyoid gland. only had preliiminary w/u prior to moving to [place]. Will f/u with new PCP at [facility]. 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 Rx with Estring. Family History Mother , suicide at age 60. Stroke Father , alzheimers Neoplasm prostate CA. Sister Alcohol abuse Neoplasm breast CA. Sister No problems noted. Social History Smoking/Tobacco Use Status: Former Tobacco Use Second Hand Exposure: No Alcohol Intake: current Alcohol Intake frequency: a few times a week Alcohol type: wine Drug use: Never Substance use type: does not use Household members: none and other Details: D-lives alone. 2019 in a relationship with boyfriend. 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 Payton 23yo 2018 moved to [facility]. Female Reproductive History Menstrual Menopause type: natural History History 2 Para 2 Hx # Term Pregnancies 2 Multiple births Hx # Pregnancies Ectopic pregnancies AB induced Hx Number of Living Children 2 AB spontaneous
[2020-02-29 10:28] LABS: HSV 2 DNA Result Positive (Negative); Specimen Description CSF
== END 2020-02-28 11:02 | disposition home or self-care (01) | DRG 76 ==
LOC: ER 19:43 → MS 20:54
PROVIDERS: Admitting Provider Internal Medicine; Emergency Provider Physician Assistant; PCP Family Medicine; Visit Provider Internal Medicine
DX: A87.9 Viral meningitis, unspecified (principal); G03.2 Benign recurrent meningitis [Mollaret]; Z11.59 Encounter for screening for other viral diseases; A60.00 Herpesviral infection of urogenital system, unspecified; E83.52 Hypercalcemia
CPT/HCPCS: 62270; 36415; 80048; 80053; 82945; 87040; 87498; 87529; 89050; 89051; 96361; 96365; 96368; 96375; 99217; 99222; 99232; 99285; J1650; U0003; 70450; 71046; 81003; 81015; 83605; 83735; 84157; 84484; 85025; 85610; 85730; 87070; 87205; J0131; J0133; J0290; J0780; J1100; J1200; J1885

== ENCOUNTER 2021-02-07 18:38 | Emergency (ER) | payer BC, SELFPAY ==
[2021-02-07] VITALS (24 sets, daily range): BP systolic 130–152; BP diastolic 71–97; PULSE 64–82; RESP 9–21; TEMP 36.6; O2SAT 96–100
--- NOTE | 2021-02-07 19:30 | DI.CT_ITS ---
Exam(s) CT HEAD CERVICAL SPINE WO EXAM: CT HEAD CERVICAL SPINE WO CLINICAL HISTORY: fall, LOC. TECHNIQUE: Imaging Protocol: Axial computed tomography images with coronal and sagittal reformatted images were created and reviewed COMPARISON: CT CT HEAD WO from 02/26/2020 FINDINGS: BRAIN: There is a posterior left parietal scalp hematoma There are no skull fractures. Small amount of fluid in the left maxillary sinus is noted. There is no evidence of intracranial hemorrhage, mass effect, or shift of midline structures. There are no extra-axial fluid collections. The ventricles are not enlarged or shifted and there is no blo od within the ventricular system nor within the basal cisterns. CERVICAL SPINE: There is no evidence of fracture nor listhesis. No significant prevertebral soft tissue swelling. Chronic degenerative disc disease C5-6 and C6-7 levels. Some facet arthropathy is noted bilaterally. There is no significant facet joint malalignment. No significant osseous lesions evident. IMPRESSION: No acute intracranial findings on this noninfused CT scan of the brain.Left parietal scalp hematoma. No skull fracture. Incidentally noted is a small fluid level in left maxillary sinus. No evidence of acute cervical spine fracture, malalignment, nor acute compromise of the cervical spin al canal. Multilevel degenerative changes in the cervical spine noted. RADIATION DOSE DELIVERED: 963.52mGy.cm Total DLP DATA REPOSITORY: All CT scans at this facility are submitted to the National Radiology Data Registry (NRDR) Dose Index Registry (DIR) with the [employer] (ACR). RADIATION OPTIMIZATION: All CT scans at this facility use at least one of these dose optimization te chniques: automated exposure control; mA and/or kV adjustment per patient size (includes targeted exa ms where dose is matched to clinical indication); or iterative reconstruction.
[2021-02-07] MEDS: Ondansetron O.D.T. 4 MG TABEF PO (20:25)
--- NOTE | 2021-02-07 20:41 | DI.VRAD_ITS ---
PROCEDURE INFORMATION: Exam: CT Head Without Contrast Exam date and time: 02/07/2021 7:36 PM Age: 65 years old Clinical indication: Injury or trauma; Blunt trauma (contusions or hematomas); With loss of consciousness; Loss of consciousness for 30 minutes or less; Injury date: 02/07/21; Injury details: Fall, loc TECHNIQUE: Imaging protocol: Computed tomography of the head without contrast. Radiation optimization: All CT scans at this facility use at least one of these dose optimization techniques: automated exposure control; mA and/or kV adjustment per patient size (includes targeted exams where dose is matched to clinical indication); or iterative reconstruction. COMPARISON: CT HEAD WO 02/26/2020 4:10 PM FINDINGS: Brain: There is no evidence of acute hemorrhage within the brain parenchyma or the subarachnoid space. No abnormal attenuation is noted within the brain parenchyma. Cerebral ventricles: There is no significant ventricular effacement or midline shift. The ventricular system is normal in size and distribution. Paranasal sinuses: Trace inferior maxillary sinus air-fluid level. The sinuses are otherwise normal. Mastoid air cells: The mastoid sinuses are normal. Orbital cavity: The orbits are normal. Bones/joints: The skull is normal. No skull fracture. Soft tissues: Left posterolateral scalp hematoma. IMPRESSION: 1. No acute intracranial abnormality. 2. Posterolateral left scalp hematoma. No adjacent skull fracture. PROCEDURE INFORMATION: Exam: CT Cervical Spine Without Contrast Exam date and time: 02/07/2021 7:36 PM Age: 65 years old Clinical indication: Injury or trauma; Blunt trauma (contusions or hematomas); With loss of consciousness; Loss of consciousness for 30 minutes or less; Injury date: 02/07/21; Injury details: Fall, loc TECHNIQUE: Imaging protocol: Computed tomography images of the cervical spine without contrast. Radiation optimization: All CT scans at this facility use at least one of these dose optimization techniques: automated exposure control; mA and/or kV adjustment per patient size (includes targeted exams where dose is matched to clinical indication); or iterative reconstruction. COMPARISON: CT HEAD WO 02/26/2020 4:10 PM FINDINGS: Bones/joints: Normal lordotic curvature of the cervical spine. No spondylolysis or spondylolisthesis. No vertebral body compression fractures. No fracture of the posterior or lateral elements. Discs/Spinal canal/Neural foramina: Chronic multilevel disc space narrowing and prominent posterior osteophytes at C5-C7. Mild left C5-C6 neural foraminal narrowing. Lungs: The visualized bilateral upper lung thorne are notable for chronic pleuroparenchymal scarring. Soft tissues: No prevertebral soft tissue swelling. IMPRESSION: No acute cervical spine fracture or malalignment. Dictated and Authenticated by: Melody Bryan MD. Ordering:MAHESH Hanna MD
--- NOTE | 2021-02-07 20:53 | ED.GENADUL_ITS ---
Discharge Plan Disposition Patient Disposition: HOME Condition: Good Discharge Details Clinical Impression: Concussion, Cervicalgia Primary Care Provider: [facility] ED Provider: Cyndi Collins Home Meds and New Rx's Prescriptions: New ondansetron HCl [Zofran] 4 mg tablet 4 mg PO Q6H PRNQty: 10 RF: 0 No Action Estring 2 mg (7.5 mcg /24 hour) ring 1 vag ring [id number] [id number] Qty: 1 RF: 4 Discharge Instructions Instructions: Concussion (ED), Neck Pain (ED) Additional Instructions: Take Tylenol 650 mg every 4-6 hours Take ibuprofen 4 mg every 8 hours Take Zofran as needed for nausea and vomiting No driving until your symptoms have completely resolved No engaging in activities where you may harm yourself such as climbing ladders, operating machinery Limit reading, critical thinking, television, phone use until your symptoms have resolved Call your doctor for follow-up, you should be reevaluated in the next week Please return with uncontrolled vomiting, worsening headache, personality change, or with any new or worsening complaints Discharge Data Discharge Date/Time-TO BE ENTERED AT DEPARTURE: 02/07/21 21:10 Medical Decision Making Patient appears well, she is alert and oriented, she is not vomited Her CT head and cervical spine do not show evidence of acute abnormality, her cervical collar was removed, she is ambulatory with steady gait, her vitals are stable She will take Tylenol and ibuprofen for headache She was given Zofran for home as needed Concussion precautions were reviewed and including no driving or engaging in any further dangerous activities until her symptoms have resolved completely Recheck with primary care physician this week recommended Return precautions discussed and patient expressed understanding CT scan results reviewed from interpretation Discharged home in stable condition with stable vitals Medical Records Medical records reviewed: Yes I reviewed the patient's medical records. HPI General Mode of arrival: ambulatory . Date/Time Provider Initiated Documentation: 02/07/21 18:40 . Limitations to Documentation: no limitations . Information obtained by: patient . HPI Narrative: This 65-year-old otherwise healthy female presents with trip and fall down an embankment. She fell from standing on a rock embankment several feet, landing on her head. She thinks she lost consciousness. There was note for no longer than 30 seconds. She has been nauseous since the event occurred. She states she has a headache but not worsening. She also has some neck pain. She denies any strength or sensation ch anges. She denies any history of anticoagulation. She felt fine prior to the event occurring. She was able to ambulate her friends off after the event occurred. She reports a lump to the occipital region. Related Data Home Medications Medication Instructions Recorded Confirmed estradiol 1 vag ring VG [id number] #1 each 06/09/20 02/07/21 ondansetron HCl [Zofran] 4 mg PO Q6H PRN #10 tab 02/07/21 Previous Rx's Medication Instructions Recorded estradiol 1 vag ring VG [id number] #1 each 06/09/20 ondansetron HCl [Zofran] 4 mg PO Q6H PRN #10 tab 02/07/21 Allergies Allergy/AdvReac Type Severity Reaction Status Date / Time No Known Allergies Allergy Unverified 02/07/21 18:51 General Stated Complaint: HeadInjury GAYATRI: 2 Review of Systems All systems reviewed & are unremarkable except as noted in HPI and below PFSH Medical History (Updated 02/07/21 @ 20:57 by VENANCIO Samayoa) Genital herpes no recent outbreaks. Mollaret's syndrome (benign recurrent meningitis) 1984, 1989, 2002. Serum calcium elevated Dx in 2016. Nl parathyoid gland. only had preliiminary w/u prior to moving to [place]. Will f/u with new PCP at [facility]. 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 Rx with Estring. Family History Mother , suicide at age 60. Stroke Father , alzheimers Neoplasm prostate CA. Sister Alcohol abuse Neoplasm breast CA. Sister No problems noted. Social History Smoking/Tobacco Use Status: Former Tobacco Use Second Hand Exposure: No Smoking risk assessment performed?: Yes Alcohol Intake: current Alcohol Intake frequency: a few times a week Alcohol type: wine Drug use: Never Substance use type: does not use Household members: none and other Details: D-lives alone. 2019 in a relationship with boyfriend. 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 Payton 23yo 2018 moved to [facility]. Female Reproductive History Menstrual Menopause type: natural History History 2 Para 2 Hx # Term Pregnancies 2 Multiple births Hx # Pregnancies Ectopic pregnancies AB induced Hx Number of Living Children 2 AB spontaneous Exam Const Orientation: alert and oriented x3 HENMT Other: Uvula midline, 1 inch hematoma to the occipital region, no hemotympanum Eyes Pupils: PERRL Neck Other: Mild paraspinal muscle tenderness Chest Chest: normal inspection of the chest Resp Effort & Inspection: normal respiratory effort Auscultation: clear to auscultation bilaterally Other: No crepitus, no visible signs of trauma Cardio Rate: regular rate Rhythm: regular rhythm GI Other: No CVA tenderness, no ecchymosis to CVA or abdominal region Back/Spine/Pelvis Other: No thoracic or lumbar spine tenderness at the present of trauma Neuro General: patient alert and patient oriented x3 Cranial Nerves: CN's II-XI intact bilaterally and tongue midline Speech: speech normal Gait: normal gait Motor: muscle tone normal throughout Sensory Exam: no sensory deficits noted Other: GCS 15 Extrem Other: Abrasion noted to right upper extremity Neurovascularly intact Course Vital Signs Vital signs: Vital Signs Temperature 36.6 C 02/07/21 18:47 Pulse 74 02/07/21 18:47 Respiratory Rate 20 02/07/21 18:47 Blood Pressure 142/77 H 02/07/21 18:47 Pulse Oximetry 99 02/07/21 18:47 Temperature 36.6 C 02/07/21 18:47 Temperature Source Skin 02/07/21 18:47 Pulse 64 02/07/21 20:31 Pulse 72 02/07/21 20:31 Respiratory Rate 10 L 02/07/21 20:31 Respiratory Effort Non-Labored 02/07/21 19:03 Respiratory Depth Normal 02/07/21 19:03 Respiratory Pattern Normal 02/07/21 19:03 Blood Pressure 133/73 02/07/21 20:31 Blood Pressure Mean 89 02/07/21 20:31 Blood Pressure Position Sitting 02/07/21 18:47 Pulse Oximetry 97 02/07/21 20:31 Oxygen Delivery Method Room Air 02/07/21 18:47 Oxygen Flow Rate 0 02/07/21 18:47 Pain Level 5 02/07/21 18:47 Comment 02/07/21 18:47
[2021-02-07] MEDS: Ondansetron O.D.T. 4 MG TABEF, 3 TABS/BTL PO (21:10)
== END 2021-02-07 21:10 | disposition home or self-care (01) ==
PROVIDERS: Emergency Provider Physician Assistant; PCP Family Medicine
DX: S06.0X0A Concussion without loss of consciousness, initial encounter (principal); M54.2 Cervicalgia; W01.198A Fall on same level from slipping, tripping and stumbling with subsequent striking against other object, initial encounter; R11.0 Nausea; R51.9 Headache, unspecified
CPT/HCPCS: 99284; 70450; 72125; 99285

== ENCOUNTER 2021-02-10 14:04 | Outpatient (CLI) | payer BC, SELFPAY ==
--- NOTE | 2021-02-10 | DI.RAD_ITS ---
Exam(s) XR LUMBAR SPINE COMPLETE EXAM: XR LUMBAR SPINE COMPLETE CLINICAL HISTORY: ACUTE LT-SIDED LBP WITH SCIATICA, M54.42; ANTERIOR LT LOWER LEG NUMBNESS. TECHNIQUE: 2D digital imaging was performed. COMPARISON: No exams were available for comparison FINDINGS: There is no evidence of fracture or listhesis. No pars defects. There is advanced disc space narrow ing at L5-S1 level noted. Mild disc space narrowing at L3-4 level and anterior osseous lipping at th is level. L4-5 level exhibits normal height. No obvious facet arthropathy. Sacroiliac joints appea r unremarkable. No osseous lesions. No scoliosis. IMPRESSION: Prominent disc space narrowing at L5-S1 level. DATA REPOSITORY: RADIATION DOSE DELIVERED:
== END 2021-02-10 14:24 ==
LOC: DI 02-13 14:05
PROVIDERS: PCP Family Medicine; Visit Provider Family Medicine
DX: M54.42 Lumbago with sciatica, left side (principal); R20.0 Anesthesia of skin; M51.37 Other intervertebral disc degeneration, lumbosacral region
CPT/HCPCS: 72110

== ENCOUNTER 2021-06-13 02:12 | Outpatient (CLI) | payer MEDICARE, OTHER, SELFPAY ==
[2021-06-13 09:18] LABS: Abs Immature Grans 0.01 10^3/uL (0.0-0.06); Absolute Basophil Count 0.05 10^3/uL (0.0-0.2); Absolute Eosinophil Count 0.19 10^3/uL (0.0-0.7); Absolute Lymphocyte Count 2.31 10^3/uL (1.2-3.4); Absolute Monocyte Count 0.43 10^3/uL (0.1-0.8); Absolute Neutrophil Count 2.89 10^3/uL (1.2-6.7); Basophils % 0.9; Eosinophils % 3.2; HCT 38.9 % (36.0-46.0); HGB 13.2 g/dL (11.2-15.7); Immature Grans % 0.2; Lymphocytes % 39.3; MCH 29.7 pg (27.0-33.0); MCHC 33.9 % (32.0-36.0); MCV 87.6 fL (80-95); MPV 8.7 fL (8.0-11.0); Monocytes % 7.3; Neutrophils % 49.1; Nucleated RBC 0 %; Platelet Count 280 10^3/uL (130-400); RBC 4.44 10^6/uL (3.93-5.22); RDW 12.5 % (11.7-14.6); RDW-SD 40.8 fL; WBC 5.88 10^3/uL (4.4-10.8)
[2021-06-13 10:18] LABS: ALT 27 U/L (14-59); AST 15 U/L (15-37); Albumin 3.7 g/dL (3.4-5.0); Alkaline Phosphatase 77 U/L (46-116); Anion Gap 7.2 mmol/L (3-11); BUN 12 mg/dL (7-18); Bilirubin, Total 0.5 mg/dL (0.2-1.0); CO2 27.8 mmol/L (21.0-32.0); CREATININE 0.8 mg/dL (0.55-1.02); Calcium 9.8 mg/dL (8.5-10.1); Calculated LDL 147 mg/dL (<100); Chloride 103 mmol/L (98-107); Cholesterol 226 mg/dL (<200); Glucose 93 mg/dL (74-106); HDL Cholesterol 62 mg/dL (40-60); Potassium 4.4 mmol/L (3.5-5.1); Sodium 138 mmol/L (136-145); Total Protein 6.5 g/dL (6.4-8.2); Triglyceride 85 mg/dL (<150)
== END 2021-06-13 02:13 | disposition home or self-care (01) ==
LOC: LBO 02:12
PROVIDERS: PCP Family Medicine; Visit Provider Family Medicine
DX: E78.5 Hyperlipidemia, unspecified (principal); K21.9 Gastro-esophageal reflux disease without esophagitis
CPT/HCPCS: 36415; 80053; 80061; 85025

== ENCOUNTER 2021-07-19 00:25 | Outpatient (CLI) | payer MEDICARE, SELFPAY ==
--- NOTE | 2021-07-19 15:01 | DI.MAMMO_ITS ---
Exam(s) MAMMO SCREENING EXAM: MAMMO SCREENING CLINICAL HISTORY: screening. TECHNIQUE: Bilateral full field digital CC and MLO mammographic images were obtained with 3D tomosyn thesis and utilizing computer aided detection (CAD). COMPARISON: Prior mammograms were reviewed, the most recent being October 2019. FINDINGS: There are no new spiculated masses nor malignant appearing microcalcification groups. There is no significant architectural distortion nor skin thickening-retraction. IMPRESSION: No radiographic evidence of malignancy. BI-RADS Category 1 - Negative Breast Density - Category B - Scattered areas of fibroglandular density Breast density Category C or D implies that the patient has dense breast tissue. Dense breast tissue can make it harder to find cancer on a mammogram. Dense breast tissue is also associated with an incr eased risk of breast cancer. This information about the result of the mammogram report was provided to the patient to raise their awareness. Use this report when you speak with the patient about their risks for breast cancer, which includes their family history. At that time, you may recommend additional screening tests (Ultrasoun d or MRI) as these tests may add significant information. A negative radiographic report should not delay biopsy if a dominant or clinically suspicious mass is present. Up to ten percent of cancers are not identified on mammography. A negative report may reinforce clinical impression. Adenosis and dense breasts may obscure an underlying neoplasm. False positive reports average 6 to 10%. Patient will receive a letter notifying them of these results.
== END 2021-07-19 00:45 ==
PROVIDERS: PCP Family Medicine; Visit Provider Obstetrics & Gynecology Gynecology
DX: Z12.31 Encounter for screening mammogram for malignant neoplasm of breast (principal)
CPT/HCPCS: 77063; 77067

== ENCOUNTER → 2021-11-29 01:12 | Outpatient (CLI) | payer MEDICARE, OTHER, SELFPAY ==
--- NOTE | 2021-11-29 | DI.RAD_ITS ---
Exam(s) XR CHEST 2V PA LATERAL EXAM: XR CHEST 2V PA LATERAL CLINICAL HISTORY: COUGH R05.9 X 6 MONTHS, POSSIBLE ASBESTOS EXPOSURE. TECHNIQUE: 2D digital imaging was performed. COMPARISON: CR,XR XR CHEST 2V PA LATERAL from 02/26/2020 FINDINGS: 2 views: Heart size is normal. The mediastinum is not widened. Lungs are clear. No infiltrates nor pleural effusions. IMPRESSION: No acute pulmonary findings. DATA REPOSITORY: RADIATION DOSE DELIVERED:
== END ==
PROVIDERS: PCP Family Medicine; Visit Provider Family Medicine
DX: R05.9 Cough, unspecified (principal)
CPT/HCPCS: 71046

== ENCOUNTER 2022-06-29 02:53 | Outpatient (CLI) | payer MEDICARE, OTHER, SELFPAY ==
[2022-06-29 09:37] LABS: ALT 38 U/L (14-59); AST 27 U/L (15-37); Albumin 3.7 g/dL (3.4-5.0); Alkaline Phosphatase 80 U/L (46-116); Anion Gap 5.4 mmol/L (3-11); BUN 14 mg/dL (7-18); Bilirubin, Total 0.4 mg/dL (0.2-1.0); CO2 28.6 mmol/L (21.0-32.0); CREATININE 0.9 mg/dL (0.55-1.02); Calcium 9.6 mg/dL (8.5-10.1); Calculated LDL 126 mg/dL (<100); Chloride 105 mmol/L (98-107); Cholesterol 216 mg/dL (<200); Estimated GFR 70.51 (mL/min/1.73m2); Glucose 97 mg/dL (74-106); HDL Cholesterol 72 mg/dL (40-60); Potassium 3.9 mmol/L (3.5-5.1); Sodium 139 mmol/L (136-145); Triglyceride 92 mg/dL (<150)
== END 2022-06-29 02:54 | disposition home or self-care (01) ==
LOC: LBO 02:54
PROVIDERS: PCP Family Medicine; Visit Provider Family Medicine
DX: E78.5 Hyperlipidemia, unspecified (principal); Z51.81 Encounter for therapeutic drug level monitoring
CPT/HCPCS: 36415; 80053; 80061

== ENCOUNTER 2023-01-18 17:19 | Outpatient (REF) | payer MEDICARE, OTHER, SELFPAY ==
--- NOTE | 2023-01-18 15:45 | PAPFT_PTH ---
PATIENT: Iris Pearl LOC: [facility] U#:[id number] AGE/SX: 67/F ROOM: RE01/18/[address]: Magaly Nguyen : 1955 BED: DIS: 01/18/2023 SPEC #: [id number] RECD: 01/18/23 17:32 STATUS: TRISTAN REAleksandra #: [id number] RAYMOND: 01/18/23 15:[address]: Magaly Nguyen DEPT: [facility], [facility] Cytology RECD BY: Cyndi Chambers ENTERED: 01/18/23 17:33 SP TYPE: PAPFT OTHR DR: Mane Woods Tissues: 1 - CX/ENDOCX FOR PAP SMEARS Procedures: PAP THIN PREP/UVM Screening HPV DNA PROBE Comments: [id number]
== END 2023-01-18 17:20 | disposition home or self-care (01) ==
LOC: LBN 17:19
PROVIDERS: PCP Family Medicine; Visit Provider Obstetrics & Gynecology Gynecology
DX: Z11.51 Encounter for screening for human papillomavirus (HPV) (principal); Z01.419 Encounter for gynecological examination (general) (routine) without abnormal findings
CPT/HCPCS: 88142; 87624

== ENCOUNTER 2023-01-23 00:22 | Outpatient (CLI) | payer MEDICARE, SELFPAY ==
--- NOTE | 2023-01-23 07:30 | DI.MAMMO_ITS ---
Exam(s) MAMMO SCREENING EXAM: MAMMO SCREENING CLINICAL HISTORY: screening, Z12.39. TECHNIQUE: Bilateral full field digital CC and MLO mammographic images were obtained with 3D tomosyn thesis and utilizing computer aided detection (CAD). COMPARISON: Prior mammograms were reviewed. FINDINGS: There are no CAD designations. No new significant findings in the right breast. Posteriorly in left breast there is an 8 x 3 mm nodular density located 8 cm in from the nipple on th e MLO view, and 9 cm in from the nipple lateral of center on the CC view. This has the appearance of probable benign lymph node but was not evident on prior mammograms. There are no malignant-appearing microcalcification groups in this region or elsewhere in either nasra st. There is no significant architectural distortion nor skin thickening-retraction. IMPRESSION: 1. No radiographic evidence of malignancy in the right breast. 2. Asymmetric density-8 x 3 mm nodular density located posterolaterally in the left breast, having be nign appearance but not evident on prior mammograms. Spot compression view and ultrasound recommende d. BI-RADS Category 0 - Assessment Incomplete: Need additional imaging evaluation Breast Density - Category B - Scattered areas of fibroglandular density Breast density Category C or D implies that the patient has dense breast tissue. Dense breast tissue can make it harder to find cancer on a mammogram. Dense breast tissue is also associated with an incr eased risk of breast cancer. This information about the result of the mammogram report was provided to the patient to raise their awareness. Use this report when you speak with the patient about their risks for breast cancer, which includes their family history. At that time, you may recommend additional screening tests (Ultrasoun d or MRI) as these tests may add significant information. A negative radiographic report should not delay biopsy if a dominant or clinically suspicious mass is present. Up to ten percent of cancers are not identified on mammography. A negative report may reinforce clinical impression. Adenosis and dense breasts may obscure an underlying neoplasm. False positive reports average 6 to 10%. Patient will receive a letter notifying them of these results.
== END 2023-01-23 00:42 ==
LOC: DI 00:22
PROVIDERS: PCP Family Medicine; Visit Provider Obstetrics & Gynecology Gynecology
DX: Z12.31 Encounter for screening mammogram for malignant neoplasm of breast (principal)
CPT/HCPCS: 77063; 77067

== ENCOUNTER 2023-01-29 02:03 | Outpatient (CLI) | payer MEDICARE, SELFPAY ==
--- NOTE | 2023-01-29 | DI.US_ITS ---
Exam(s) MG MAMMO SCREEN CALL BACK UNI US BREAST LT LIMITED EXAM: MG MAMMO SCREEN CALL BACK UNI and U/S breast LT limited CLINICAL HISTORY: ASYMMETRIC DENSITY 8 X 3 MM NODULAR DENSITY LT BREAST. TECHNIQUE: Craniocaudal and mediolateral oblique Full Field Digital Mammography views of the left br east with Computer Aided Diagnosis followed by Tomosynthesis and left breast ultrasound. COMPARISON: Comparison is with prior examinations. FINDINGS: Mammography/Tomosynthesis: Masses/Architectural Distortion: There is a persistent very small ovoid density in the outer left tanner ast on the craniocaudad view. It measures 3 mm. It is well-circumscribed. No areas of architectura l distortion are seen. Microcalcifictions: No suspicious pleomorphic-type are seen. Skin Thickening/Nipple Retraction: None. Limited left breast US: Echotexture: Normal appearance of the glandular tissue. Shadowing: No suspicious foci. Cyst: None. Solid lesions: A sonographically benign-appearing lymph node is seen at the 2 o'clock position of the left breast 4 cm from the nipple measuring 0.8 cm maximally. No other cystic or solid lesions are s een. Ductal dilation: None. IMPRESSION: 1. No evidence of malignancy is noted. 2. Unless there is more urgent need, follow-up screening mammography is recommended, as per [employer] guidelines. 3. The findings were discussed with the patient on the date of the examination. BI-RADS Category 2 - Benign Findings Breast Density - Category B - Scattered areas of fibroglandular density Breast density Category C or D implies that the patient has dense breast tissue. Dense breast tissue can make it harder to find cancer on a mammogram. Dense breast tissue is also associated with an incr eased risk of breast cancer. This information about the result of the mammogram report was provided to the patient to raise their awareness. Use this report when you speak with the patient about their risks for breast cancer, which includes their family history. At that time, you may recommend additional screening tests (Ultrasoun d or MRI) as these tests may add significant information. A negative radiographic report should not delay biopsy if a dominant or clinically suspicious mass is present. Up to ten percent of cancers are not identified on mammography. A negative report may reinforce clinical impression. Adenosis and dense breasts may obscure an underlying neoplasm. False positive reports average 6 to 10%. Patient will receive a letter notifying them of these results.
== END 2023-01-29 02:23 ==
LOC: DI 02:03
PROVIDERS: PCP Family Medicine; Visit Provider Obstetrics & Gynecology Gynecology
DX: R92.8 Other abnormal and inconclusive findings on diagnostic imaging of breast (principal); Z12.31 Encounter for screening mammogram for malignant neoplasm of breast
CPT/HCPCS: 76642; 77063; 77067

== ENCOUNTER 2023-11-21 04:26 | Outpatient (CLI) | payer MEDICARE, SELFPAY ==
[2023-11-21 10:50] LABS: ALT 34 U/L (14-59); AST 21 U/L (15-37); Albumin 3.7 g/dL (3.4-5.0); Alkaline Phosphatase 91 U/L (46-116); Anion Gap 6.3 mmol/L (3-11); BUN 12 mg/dL (7-18); Bilirubin, Total 0.4 mg/dL (0.2-1.0); CO2 28.7 mmol/L (21.0-32.0); CREATININE 0.9 mg/dL (0.55-1.02); Calcium 9.8 mg/dL (8.5-10.1); Calculated LDL 116 mg/dL (<100); Chloride 104 mmol/L (98-107); Cholesterol 201 mg/dL (<200); Estimated GFR 70.07 (mL/min/1.73m2); Glucose 94 mg/dL (74-106); HDL Cholesterol 67 mg/dL (40-60); Potassium 3.9 mmol/L (3.5-5.1); Sodium 139 mmol/L (136-145); Total Protein 7.1 g/dL (6.4-8.2); Triglyceride 92 mg/dL (<150)
== END 2023-11-21 04:27 | disposition home or self-care (01) ==
PROVIDERS: PCP Family Medicine; Visit Provider Family Medicine
DX: E78.5 Hyperlipidemia, unspecified (principal)
CPT/HCPCS: 36415; 80053; 80061

== ENCOUNTER 2024-03-26 01:10 | Outpatient (CLI) | payer MEDICARE, SELFPAY ==
--- NOTE | 2024-03-26 12:00 | DI.MAMMO_ITS ---
Exam(s) MAMMO SCREENING EXAM: MAMMO SCREENING CLINICAL HISTORY: screening TECHNIQUE: Mammograms were interpreted according to the usual protocol including computer analysis w [employer] CAD system, tomosynthesis and C-view imaging. COMPARISON: 2014 through 2022 FINDINGS: The breasts are composed of scattered fibroglandular densities, Breast Density category B. No suspicious masses or suspicious microcalcifications are seen. No skin thickening or abnormal axillary lymph nodes are seen. There has been no significant change from prior exams. IMPRESSION: BI-RADS Category 1, Negative mammogram Yearly screening mammography is recommended. Breast Density - Category B, scattered fibroglandular densities. A negative radiographic report should not delay biopsy if a dominant or clinically suspicious mass is present. Up to ten percent of cancers are not identified on mammography. A negative report may reinforce clinical impression. Adenosis and dense breasts may obscure an underlying neoplasm. False positive reports average 6 to 10%. Patient will receive a letter notifying them of these results.
== END 2024-03-26 01:30 ==
PROVIDERS: PCP Nurse Practitioner Family; Visit Provider Obstetrics & Gynecology Gynecology
DX: Z12.31 Encounter for screening mammogram for malignant neoplasm of breast (principal)
CPT/HCPCS: 77063; 77067

== ENCOUNTER 2024-06-11 01:07 | Outpatient (CLI) | payer MEDICARE, OTHER, SELFPAY ==
--- NOTE | 2024-06-11 07:15 | DI.DEXA_ITS ---
Exam(s) XR DEXA BONE DENSITY W/WO TRACEY EXAM: XR DEXA BONE DENSITY W/WO TRACEY CLINICAL HISTORY: Screening for osteoporosis in postmenopausal status, z78.0 TECHNIQUE: COMPARISON: No exams were available for comparison FINDINGS: Lateral Spine Image: Unremarkable. No compression deformities identified. Left hip: Total T-Score: -0.7 Total Z-Score: 0.7 T- and Z-scores: Within normal limits. Lumbar Spine: Total T-Score: -1.9 Total Z-Score: 0.1 T- and Z-scores: Within normal limits. There is osteoporosis in the right forearm with a total T-score of -3.2 and Z-score of -1.3. IMPRESSION: Osteoporosis in the right forearm.
== END 2024-06-11 01:27 ==
LOC: DI 01:07
PROVIDERS: PCP Nurse Practitioner Family; Visit Provider Nurse Practitioner Family
DX: Z78.0 Asymptomatic menopausal state (principal); Z13.820 Encounter for screening for osteoporosis
CPT/HCPCS: 77080

== ENCOUNTER 2024-11-27 09:55 | Outpatient (CLI) | payer MEDICARE, OTHER, SELFPAY ==
[2024-11-30 10:23] LABS: Lyme Ab w Rflx to Lyme Confirm Negative (Negative)
[2024-11-30 18:30] LABS: Anaplasma phagocytophilum Negative (Negative); B. miyamotoi PCR Negative (Negative); Babesia divergens/MO-1 Negative (Negative); Babesia duncani Negative (Negative); Babesia microti Negative (Negative); Ehrlichia chaffeensis Negative (Negative); Ehrlichia ewingii/canis Negative (Negative); Ehrlichia muris eauclairensis Negative (Negative)
== END 2024-11-27 09:56 | disposition home or self-care (01) ==
LOC: LBO 09:56
PROVIDERS: PCP Nurse Practitioner Family; Visit Provider Nurse Practitioner Family
DX: T14.90XA Injury, unspecified, initial encounter (principal); W57.XXXA Bitten or stung by nonvenomous insect and other nonvenomous arthropods, initial encounter
CPT/HCPCS: 36415; 87798; 86618

== ENCOUNTER 2024-12-10 01:06 | Outpatient (CLI) | payer MEDICARE, OTHER, SELFPAY ==
[2024-12-10 08:47] LABS: Abs Immature Grans 0.01 10^3/uL (0.0-0.06); Absolute Basophil Count 0.06 10^3/uL (0.0-0.2); Absolute Eosinophil Count 0.24 10^3/uL (0.0-0.7); Absolute Lymphocyte Count 2.45 10^3/uL (1.2-3.4); Absolute Monocyte Count 0.36 10^3/uL (0.1-0.8); Absolute Neutrophil Count 2.53 10^3/uL (1.2-6.7); Basophils % 1.1 %; Eosinophils % 4.2 %; HCT 41.3 % (36.0-46.0); HGB 13.6 g/dL (11.2-15.7); Immature Grans % 0.2 %; Lymphocytes % 43.4 %; MCHC 32.9 % (32.0-36.0); MCV 88 fL (80-95); MPV 8.9 fL (8.0-11.0); Monocytes % 6.4 %; Neutrophils % 44.7 %; Platelet Count 275 10^3/uL (130-400); RBC 4.69 10^6/uL (3.93-5.22); RDW 12.9 % (11.7-14.6); RDW-SD 41.5 fL; WBC 5.65 10^3/uL (4.4-10.8)
[2024-12-10 09:32] LABS: ALT 31 U/L (14-59); AST 18 U/L (15-37); Albumin 3.7 g/dL (3.4-5.0); Alkaline Phosphatase 99 U/L (46-116); Anion Gap 6.9 mmol/L (3-11); BUN 13 mg/dL (7-18); Bilirubin, Total 0.3 mg/dL (0.2-1.0); CO2 28.1 mmol/L (21.0-32.0); CREATININE 0.8 mg/dL (0.55-1.02); Calcium 9.8 mg/dL (8.5-10.1); Chloride 105 mmol/L (98-107); Estimated GFR 80.21 (mL/min/1.73m2); Glucose 93 mg/dL (74-106); Potassium 4.2 mmol/L (3.5-5.1); Sodium 140 mmol/L (136-145); TSH (W/Ref FT4) 2.36 uIU/mL (0.36-3.74); Total Protein 7.3 g/dL (6.4-8.2)
[2024-12-11 15:09] LABS: Hemoglobin A1C 5.4 % (<5.7)
[2024-12-13 16:42] LABS: Histoplasma/Blastomyces Result Not Detected (NotDetected); Histoplasma/Blastomyces Value Not Detected
== END 2024-12-10 01:07 | disposition home or self-care (01) ==
LOC: LBO 01:07
PROVIDERS: PCP Nurse Practitioner Family; Visit Provider Nurse Practitioner Family
DX: R05.3 Chronic cough (principal); Z00.00 Encounter for general adult medical examination without abnormal findings; E78.5 Hyperlipidemia, unspecified; K21.9 Gastro-esophageal reflux disease without esophagitis; R73.09 Other abnormal glucose
CPT/HCPCS: 36415; 80053; 87449; 83036; 84443; 85025

== ENCOUNTER 2024-12-18 00:12 | Outpatient (CLI) | payer MEDICARE, OTHER, SELFPAY ==
--- NOTE | 2024-12-18 14:30 | DI.CT_ITS ---
Exam(s) CT CHEST WO EXAM: CT CHEST WO CLINICAL HISTORY: chronic cough, R05.3. TECHNIQUE: Imaging protocol: Axial computed tomography images were obtained and coronal and sagittal reformatted images were created and reviewed. Computer aided detection (CAD) was utilized. CONTRAST MATERIAL: Noncontrast COMPARISON: CR XR CHEST 2V PA LATERAL from 11/29/2021 FINDINGS: Pulmonary parenchyma: No consolidation. No suspicious nodules. Mild linear basilar atelectasis. Interstitial changes: None. Emphysema: None. Tracheobronchial tree: No mucous plugging. No bronchiectasis . Pleura: No effusion or pneumothorax. Mild biapical scarring. Heart: The heart is mildly dilated. The coronary arteries show mild calcifications. Aorta: Thoracic aorta non-dilated. Mild atherosclerotic changes. Lymph nodes: No enlarged lymph nodes. Bones: Mild degenerative changes are seen. No evidence of compression fracture. Upper abdomen: Unremarkable. Soft tissues: Unremarkable. IMPRESSION: Mild biapical scarring, otherwise negative. RADIATION DOSE DELIVERED: Total DLP Total DLP DATA REPOSITORY: All CT scans at this facility are submitted to the National Radiology Data Registry (NRDR) Dose Index Registry (DIR) with the [employer] ([employer]). RADIATION OPTIMIZATION: All CT scans at this facility use at least one of these dose optimization techniques: automated exposure control; mA and/or kV adjustment per patient size (includes targeted exams where dose is matched to clinical indication); or iterative reconstruction.
== END 2024-12-18 00:32 ==
LOC: DI 00:12
PROVIDERS: PCP Nurse Practitioner Family; Visit Provider Nurse Practitioner Family
DX: R05.3 Chronic cough (principal)
CPT/HCPCS: 71250

== ENCOUNTER 2025-04-02 11:24 | Outpatient (REF) | payer MEDICARE, OTHER, SELFPAY | END 2025-04-02 11:25 | disposition home or self-care (01) | LOC: LBN 11:24 | PROVIDERS: PCP Nurse Practitioner Family; Visit Provider Obstetrics & Gynecology | DX: L28.1 Prurigo nodularis (principal) | CPT/HCPCS: 88305 ==

== ENCOUNTER → 2025-06-09 00:07 | Outpatient (CLI) | payer MEDICARE, OTHER, SELFPAY ==
--- NOTE | 2025-06-09 07:30 | DI.MAMMO_ITS ---
Exam(s) MAMMO SCREENING EXAM: MAMMO SCREENING CLINICAL HISTORY: screening, Z12.39 TECHNIQUE: Mammograms were interpreted according to the usual protocol including computer analysis with CAD system, tomosynthesis and C-view imaging. COMPARISON: 2015 through 2023 FINDINGS: The breasts are composed of scattered fibroglandular densities, Breast Density category B. No suspicious masses or suspicious microcalcifications are seen. No skin thickening or abnormal axillary lymph nodes are seen. There has been no significant change from prior exams. IMPRESSION: BI-RADS Category 1, Negative mammogram Yearly screening mammography is recommended. Breast Density - Category B - There are scattered areas of fibroglandular density. Breast density Category C or D implies that the patient has dense breast tissue. Dense breast tissue can make it harder to find cancer on a mammogram. Dense breast tissue is also associated with an increased risk of breast cancer. This information about the result of the mammogram report was provided to the patient to raise their awareness. Use this report when you speak with the patient about their risks for breast cancer, which includes their family history. At that time, you may recommend additional screening tests (Ultrasound or MRI) as these tests may add significant information. A negative radiographic report should not delay biopsy if a dominant or clinically suspicious mass is present. Up to ten percent of cancers are not identified on mammography. A negative report may reinforce clinical impression. Adenosis and dense breasts may obscure an underlying neoplasm. False positive reports average 6 to 10%. Patient will receive a letter notifying them of these results.
== END ==
LOC: DI 00:07
PROVIDERS: PCP Nurse Practitioner Family; Visit Provider Nurse Practitioner Family
DX: Z12.31 Encounter for screening mammogram for malignant neoplasm of breast (principal); R92.323 Mammographic fibroglandular density, bilateral breasts
CPT/HCPCS: 77063; 77067

== ENCOUNTER 2025-06-09 00:41 | Outpatient (CLI) | payer MEDICARE, OTHER, SELFPAY ==
[2025-06-09 16:34] LABS: ALT 43 U/L (10-49); AST 33 U/L (<34); Albumin 4.3 g/dL (3.2-5.0); Alkaline Phosphatase 91 U/L (46-116); Anion Gap 8.3 mmol/L (3-11); BUN 11 mg/dL (9-23); Bilirubin, Total 0.6 mg/dL (0.2-1.2); CO2 26.7 mmol/L (20.0-31.0); Calcium 10.4 mg/dL (8.3-10.6); Chloride 106 mmol/L (98-107); Cholesterol 208 mg/dL (<200); Glucose 96 mg/dL (74-106); HDL Cholesterol 60 mg/dL (>or=50); Potassium 4.2 mmol/L (3.5-5.1); Sodium 141 mmol/L (136-145); Total Protein 7.3 g/dL (5.7-8.2)
== END 2025-06-09 00:42 | disposition home or self-care (01) ==
LOC: LBO 00:42
PROVIDERS: PCP Nurse Practitioner Family; Visit Provider Nurse Practitioner Family
DX: E78.5 Hyperlipidemia, unspecified (principal); K21.9 Gastro-esophageal reflux disease without esophagitis; G03.2 Benign recurrent meningitis [Mollaret]; M19.90 Unspecified osteoarthritis, unspecified site; L71.9 Rosacea, unspecified
CPT/HCPCS: 36415; 80053; 80061